=== PATIENT | female | born 1935 | race Caucasian/White ===

== ENCOUNTER 2019-10-27 09:48 | Outpatient (CLI) | payer MEDICARE, SELFPAY ==
--- NOTE | 2019-10-27 10:03 | XRR_ITS ---
PROCEDURE INFORMATION: Exam: XR Left Knee Exam date and time: 10/27/2019 10:29 AM Age: 84 years old Clinical indication: Pain; Knee; Left; Additional info: L knee pain TECHNIQUE: Imaging protocol: XR Left knee. Views: 3 views. COMPARISON: No relevant prior studies available. FINDINGS: Bones/joints: There is joint space narrowing and osteophyte formation in the medial compartment. There is chondrocalcinosis.There is no evidence for acute fracture or malalignment. Soft tissues: Normal. XR/XR knee LT 3V* [id number] IMPRESSION: There is left knee osteoarthritis and chondrocalcinosis.
== END 2019-10-27 09:49 | disposition home or self-care (01) ==
LOC: RAD 09:55
PROVIDERS: Family Provider Family Medicine; PCP Family Medicine; Visit Provider Family Medicine
DX: M11.262 Other chondrocalcinosis, left knee (principal); M17.12 Unilateral primary osteoarthritis, left knee; M25.562 Pain in left knee
CPT/HCPCS: 73562

== ENCOUNTER 2020-04-14 07:03 | Emergency (ER) | payer MEDICARE, SELFPAY ==
[2020-04-14 07:14] VITALS: BMI 26.5
[2020-04-14 07:16] VITALS: BP 136/76; PULSE 50; RESP 18; TEMP 36.8; O2SAT 98
--- NOTE | 2020-04-14 07:29 | ED_ITS ---
HPI - Extremity Problem General: Chief complaint: Extremity Problem,Nontraumatic Stated complaint: LEFT KNEE PAIN Time Seen by Provider: 04/14/20 07:08 History of Present Illness: HPI Narrative: Patient comes in with chronic history of left knee pain that is progressively gotten worse. She has had a couple steroid shots in that left knee. Last one was a month ago by Dr. Campbell. Patient says knee was hurting some yesterday but when she woke up this morning she can hardly movement and it was a lot worse today and she did get up and move around some but the pain has not gone away. MD Complaint: joint pain Onset (ago): month(s) Pain Consistency: constant Location: left and knee Severity scale (1-10): 7 Quality: aching Radiation: none Relieving factors: rest Exacerbating factors: weight bearing Associated symptoms: Reports no associated symptoms; Deny chest pain, fever(s) or rash Review of Systems Const: Denies: fever(s), chills or body aches Eyes: Denies: change in vision or blurry vision ENMT: Denies: throat pain or nasal congestion Card: Denies: chest pain or dyspnea on exertion Resp: Denies: dyspnea, productive cough or non-productive cough GI: Denies: abdominal pain, nausea or vomiting Musc: Reports: joint pain, joint warmth, joint stiffness and limited range of motion; Denies: extremity pain Skin/Breast: Denies: rash Neuro: Denies: headache(s) Psych: Denies: anxiety or depression Fermin/Lymph: Denies: easy bruising Physical Exam Const: COMMON NORMALS: no acute distress, average body habitus and patient oriented x3 HENMT: COMMON NORMALS: normocephalic HEAD & SCALP: normal to inspection and normocephalic FACE & SINUS: normal facial exam Eye: COMMON NORMALS: conjunctivae normal GENERAL EYE: appearance normal, both eyes and all related structures CONJUNCTIVA: Yes conjunctivae normal Neck/C-Spine: COMMON NORMALS: no JVD Chest: COMMONS NORMALS: normal inspection of the chest Resp: COMMON NORMALS: normal respiratory effort and clear to auscultation bilaterally AUSCULTATION: clear to auscultation bilaterally Cardio: COMMON NORMALS: no JVD, regular rate and regular rhythm RATE: regular rate RHYTHM: regular rhythm GI: COMMON NORMALS: Normal to inspection, nondistended, normoactive bowel sounds present Extremity: LEFT LOWER EXTREMITY: Yes knee joint (Left knee is very warm to the touch above the kneecap. Definite chronic osteoarthritic changes to the joint as compared to the right. Patient has limited range of motion due to pain. No erythema noted.) OTHER: Distal neurovascular status intact. Neuro: COMMON NORMALS: patient oriented x3 Course Vital Signs: Vital signs: Vital Signs Temperature 97.8 F 04/14/20 10:16 Pulse Rate 63 04/14/20 10:16 Respiratory Rate 16 04/14/20 10:16 Blood Pressure 124/66 04/14/20 10:16 Pulse Oximetry 95 04/14/20 10:16 MDM - Extremity (Nontraumatic) MDM Narrative: Medical decision making narrative: Patient is [id number] in that left knee which she is aware of. Daughter command and asked if we go ahead and add hydrocodone for take at night. Lab Data: Labs: Lab Results 04/14/20 04/14/20 04/14/20 Range/Units 07:40 07:40 07:40 WBC 4.8 (4.0-10.0) 10^3/ uL RBC 4.60 (4.1-5.3) 10^6/u L Hgb 13.9 (11.5-15.3) g/dL Hct 42.6 (37.0-47.0) % MCV 92.6 (81-99) fL MCH 30.2 (28.0-34.0) pg MCHC 32.6 (30.0-36.0) g/dL RDW 12.9 (12.1-15.1) % Plt Count 170 (130-400) 10^3/c mm MPV 9.1 (7.4-10.4) fL Neut % (Auto) 41.3 % Lymph % (Auto) 44.7 % [place] % (Auto) 9.5 % Eos % (Auto) 3.3 % Baso % (Auto) 1.0 % Neut # (Auto) 1.99 (1.8-7.7) 10^3/u L Lymph # (Auto) 2.2 (0.8-4.8) 10^3/u L [place] # (Auto) 0.5 (0.2-0.9) 10^3/u L Eos # (Auto) 0.2 (0.0-0.8) 10^3/u L Baso # (Auto) 0.1 (0.0-0.1) 10^3/u L Nucleated RBC % (a uto) 0 % Nucleated RBCs # 0.0 /100WBC ESR 8 (0-15) mm/hr Uric Acid 5.3 (2.4-5.7) mg/dL C-Reactive Protein 3.8 (0.0-4.9) mg/L Discharge Plan Discharge Patient Disposition: Home, Self-Care Clinical Impression: (Ruled Out): Knee osteomyelitis, left Condition: Stable Prescriptions: New Celebrex 200 mg capsule 200 mg PO BID PRN (Reason: pain) Qty: 20 RF: 0 hydrocodone-acetaminophen 5-325 mg tablet 1 tab PO Q12H PRN (Reason: pain) Qty: 14 RF: 0 No Action losartan 50 mg tablet 50 mg PO DAILY RF: 0 clopidogrel 75 mg tablet 75 mg PO DAILY RF: 0 Aspir-81 81 mg Tablet,Delayed Release (Dr/Ec) 81 mg PO DAILY RF: 0 levothyroxine 75 mcg tablet 75 mcg PO DAILY RF: 0 simvastatin 20 mg tablet 20 mg PO DAILY RF: 0 oxybutynin chloride 5 mg tablet 5 mg PO TID RF: 0 metoprolol tartrate 25 mg tablet 12.5 mg PO BID RF: 0 Hair Skin And Nails Gummies 1 tab PO BID RF: 0 Discharge Orders: Discharge Order (Routine); Ordered 04/14/20 Ordered By: Lex Gonzalez Referrals: Aung Campbell MD [Primary Care Provider] - Discharge Diet: Usual diet Discharge Activity: Increase activity as tolerated Patient Instructions: Osteoarthritis (ED) Activity Restrictions/Additional Instructions: Follow-up with medical provider as directed. Take medications as prescribed. Return to the ER or your medical provider if condition worsens. Please read and understand discharge instructions. If any questions ask please. Can take up to 2 tramadol at a time for knee pain follow-up Dr. Campbell soon as possible Discharge Date/Time: 04/14/20 10:21 Coding Level of Care Code ED Tilting Saw Operator for Chg Fwd Exam Comprehensive
[2020-04-14] MEDS: predniSONE 20 mg Tablet 60 MG PO (07:40)
[2020-04-14] MEDS: HYDROcodone-acetaminophen 5-325 mg Tablet 1 TAB PO (07:41)
[2020-04-14] MEDS: ketorolac 60 mg/2 mL INJ IM (07:41)
[2020-04-14 08:03] LABS: Basophils # 0.1 10^3/uL (0.0-0.1); Eosinophils # 0.2 10^3/uL (0.0-0.8); Eosinophils % 3.3 %; Hematocrit 42.6 % (37.0-47.0); Hemoglobin 13.9 g/dL (11.5-15.3); Lymphocytes # 2.2 10^3/uL (0.8-4.8); Lymphocytes % 44.7 %; Mean Corpuscular HGB Conc 32.6 g/dL (30.0-36.0); Mean Corpuscular Hemoglobin 30.2 pg (28.0-34.0); Mean Corpuscular Volume 92.6 fL (81-99); Mean Platelet Volume 9.1 fL (7.4-10.4); Monocytes # 0.5 10^3/uL (0.2-0.9); Monocytes % 9.5 %; Neutrophils # 1.99 10^3/uL (1.8-7.7); Neutrophils % 41.3 %; Nucleated Red Blood Cells % 0 %; Platelet Count 170 10^3/cmm (130-400); Red Cell Distribution Width 12.9 % (12.1-15.1); White Blood Count 4.8 10^3/uL (4.0-10.0)
[2020-04-14 08:43] LABS: C Reactive Protein 3.8 mg/L (0.0-4.9); Uric Acid 5.3 mg/dL (2.4-5.7)
--- NOTE | 2020-04-14 08:44 | XRR_ITS ---
PROCEDURE INFORMATION: Exam: XR Left Knee Exam date and time: 04/14/2020 9:00 AM Age: 84 years old Clinical indication: Patient HX: No injury. C/O pain left knee. HX of steroid injections to knee; Additional info: Severe pain TECHNIQUE: Imaging protocol: XR Left knee. Views: Frontal, lateral, and oblique views. COMPARISON: CR XR knee LT 3V* [id number] 10/27/2019 10:25 AM FINDINGS: Bones/joints: Severe medial compartment predominate narrowing with moderate articular sclerosis and medial articular marginal lipping. Slight lateral subluxation of the tibia. Mild varus alignment. Medial and lateral meniscal chondrocalcinosis. 3.4 mm of medial extrusion of the medial meniscus. Large knee joint effusion. A small superior patellar articular marginal osteophyte is present, poorly visualized on the prior study. Soft tissues: Normal. Vasculature: Vascular calcifications are present. XR/XR knee LT 3V* [id number] IMPRESSION: 1. Medial compartment predominant primary osteoarthritis. 2. Medial and lateral meniscal chondrocalcinosis. 3. Large knee joint effusion.
[2020-04-14 08:52] VITALS: BP 128/71; PULSE 55; RESP 16; O2SAT 97
[2020-04-14 08:58] LABS: Erythrocyte Sedimentation Rate 8 mm/hr (0-15)
[2020-04-14 10:16] VITALS: BP 124/66; PULSE 63; RESP 16; TEMP 36.6; O2SAT 95
== END 2020-04-14 10:21 | disposition home or self-care (01) ==
PROVIDERS: Emergency Provider Nurse Practitioner Family; PCP Family Medicine
DX: M17.12 Unilateral primary osteoarthritis, left knee (principal)
CPT/HCPCS: 12345; 73562; 84550; 85025; 85651; 86140; 96372; 96375; 99281; 99283; J1885; J7512

== ENCOUNTER 2020-05-11 07:43 | Outpatient (CLI) | payer MEDICARE, SELFPAY ==
--- NOTE | 2020-05-11 07:56 | ECG_ITS ---
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 Interpretive Statements NAME OF STUDY: LEXISCAN SESTAMIBI STRESS TEST INDICATION: ASHD PROCEDURE: At the baseline, the blood pressure was 141/88 mmHg with a heart rate of 60 bpm. The electrocardiogram showed sinus bradycardia with first-degree AV block. Normal axis with nonspecific ST depression. The Lexiscan was infused over a period of 20 seconds. A total of 0.4 milligrams of Lexiscan was infused. The stress phase was continued for a total of 5 minutes. Heart rate at the end of the stress phase was 70 bpm with a blood pressure of 142/69 mmHg. The EKG at the peak infusion revealed sinus rhythm with no significant ST-T wave changes. Study was terminated due to protocol completion. Sestamibi was injected 20 seconds after the Lexiscan infusion. Blood pressure at the end of the recovery phase was 131/66 mmHg with a heart rate of 73 beats per minute. CONCLUSION: 1. No significant EKG changes with the LexiScan infusion. 2. No LexiScan induced chest pain or cardiac arrhythmia. 3. Normal blood pressure and heart rate response. 4. Sestamibi/sestamibi perfusion scan pending; see separate report. Electronically Signed On 05-12-2020 17:35:36 CDT by Luz Elena Laughlin M.D. [id number]
--- NOTE | 2020-05-11 07:57 | NMCV_ITS ---
NM liv perf SPECT r/s* [id number] Kandis Landin Age: 84 Gender: F : 1935 Exam Date: 05/11/2020 07:57 Ordering Phys: Luz Elena Laughlin MD ([email or web address]) Technologist: GORDON Saunders Exam Location: [facility] Indications: ATHEROSCLEROTIC HEART DISEASE OF [place] CORONARY ARTERY STRESS TEST Please [facility] for [facility] findings IMAGE PROTOCOL Rest/Stress 1 Lexiscan Day Radiopharmaceutical Dose (mCi) Administration Site Administered by Rest: Tc-99m 10.7 IV GORDON Hsu Sestamibi Stress:Tc-99m 32.8 IV GORDON Saunders Sestamijane Rest: 11-May-2020 60 Discovery 630 Stress: 11-May-2020 30 Discovery 630 0.4mg Lexiscan. Images obtained in supine and prone position. SPECT RESULTS Technical Quality: Excellent Raw Data Analysis: Normal Image Corrections: No attenuation or motion correction applied Summed Stress Score: 3 Summed Rest Score: 2 Summed Difference Score: 1 PERFUSION FINDINGS Small sized perfusion abnormality of mild severity of apical septal and apical laterla tompkins on rest images with improved tracer uptake of prone stress images. This is suggestive of attenuation artifact. FUNCTIONAL RESULTS (calculated via Gated SPECT) Stress Image LV EF (%): 91 Stress EDV (mL):54 TID: 0.79 Stress ESV (mL):5 FUNCTIONAL FINDINGS: The left ventricle is normal in size. Transient Ischemia Dilatation of 0.79. There is hyperdynamic left ventricular systolic function. The left ventricular ejection fraction is hyperdynamic with a value of 91%. There is hyperdynamic left ventricular wall thickening. IMPRESSIONS 1. Small sized perfusion abnormality of mild severity of apical septal and apical laterla tompkins on rest images with improved tracer uptake of prone stress images. This is suggestive of attenuation artifact. 2. Overall left ventricular systolic function is hyperdynamic without regional wall motion abnormalities. 3. The left ventricular ejection fraction is hyperdynamic with a value of 91%. 4. No coronary ischemic based on this study. Luz Elena Laughlin MD (Electronically Signed) Final Date: 12 May 2020 21:57 S
[2020-05-11 08:12] VITALS: BMI 27.1
[2020-05-11] MEDS: regadenoson 0.4 Mg/5 ml Syringe IVP (09:49)
[2020-05-11 10:07] VITALS: BP 130/66; PULSE 68
== END 2020-05-11 07:44 | disposition home or self-care (01) ==
LOC: CDL 07:43
PROVIDERS: PCP Family Medicine; Visit Provider Internal Medicine Cardiovascular Disease
DX: I25.10 Atherosclerotic heart disease of native coronary artery without angina pectoris (principal)
CPT/HCPCS: 78452; 93017; A9500; J2785

== ENCOUNTER → 2020-05-26 14:56 | Outpatient (BNVA) | payer MEDICARE, SELFPAY | PROVIDERS: PCP Family Medicine; Visit Provider Orthopaedic Surgery | DX: M25.562 Pain in left knee (principal) | CPT/HCPCS: 73560; 73565 ==

== ENCOUNTER → 2020-06-18 09:04 | Outpatient (BNVA) | payer MEDICARE, SELFPAY | PROVIDERS: PCP Family Medicine; Visit Provider Internal Medicine | DX: Z11.59 Encounter for screening for other viral diseases (principal) | CPT/HCPCS: 87635 ==

== ENCOUNTER 2020-06-21 08:59 | Observation (INO) | payer MEDICARE, SELFPAY ==
[2020-06-17 10:31] VITALS: BMI 26.5
--- NOTE | 2020-06-17 10:55 | P.ANESASSM_ITS ---
Pre-Anesthetic Assessment Pre-Anesthetic Assessment: Height/Weight: Height 1.6 m Weight 68.039 kg Preop Diagnosis: Osteoarthritis left knee Proposed Procedure: Operation Date: 06/21/20 07:00 Proposed Procedures p Total Knee Arthroplasty 37506 M17.12(Left) - Dagoberto Padron MD Familial anesthetic complications: None Social: Social History: No alcohol and No tobacco Exam: Pre-Anes Outpt Exam: alert, oriented x 3, clear to auscultation bilaterally and regular rate & rhythm Airway: Cervical ROM: WNL MP: 4 Dentition: False and Partials CV/HEM: CV/HEM: HTN and GA (2010 with stents placed ) GI: GI: GERD Metabolic: Metabolic: Thyroid Neuropsych: Neuropsych: 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) Anesthetic Plan: ASA status: 2 Anesthesia: General and Regional (specify below) Other: Took plavix morning of 06/17 [facility] Anesthesia PFSH: Medical History (Updated 05/26/20 @ 15:27 by aDgoberto Padron MD) Coronary artery disease Hypothyroidism Osteoarthritis Surgical History H/O rotator cuff surgery History of bladder suspension procedure History of heart artery stent History of hysterectomy History of tonsillectomy Family History Other CAD (coronary artery disease) Social History Smoking and tobacco status: former smoker Alcohol intake: never Data Anesthesia Cardiac Studies: No Data to Display
[2020-06-17 11:33] LABS: Basophils # 0.1 10^3/uL (0.0-0.1); Basophils % 1.5 %; Eosinophils # 0.1 10^3/uL (0.0-0.8); Eosinophils % 2.5 %; Hematocrit 39.9 % (37.0-47.0); Hemoglobin 12.9 g/dL (11.5-15.3); Lymphocytes # 2.7 10^3/uL (0.8-4.8); Lymphocytes % 68.2 %; Mean Corpuscular HGB Conc 32.3 g/dL (30.0-36.0); Mean Corpuscular Hemoglobin 29.9 pg (28.0-34.0); Mean Corpuscular Volume 92.4 fL (81-99); Mean Platelet Volume 9.5 fL (7.4-10.4); Monocytes # 0.5 10^3/uL (0.2-0.9); Monocytes % 13.1 %; Neutrophils % 14.7 %; Nucleated Red Blood Cells % 0 %; Platelet Count 166 10^3/cmm (130-400); Red Blood Count 4.32 10^6/uL (4.1-5.3); Red Cell Distribution Width 12.5 % (12.1-15.1)
[2020-06-17 12:08] LABS: Neutrophils # 0.58 10^3/uL (1.8-7.7)
[2020-06-21] VITALS (20 sets, daily range): BP systolic 93–156; BP diastolic 47–80; PULSE 54–74; RESP 15–20; TEMP 35.5–36.6; O2SAT 93–98
[2020-06-21] MEDS: sodium chloride 0.9% 1,000 ML 30 ML IV (06:00)
[2020-06-21] MEDS: metoprolol tartrate 25 mg Tablet 12.5 MG PO ×3 (06:30→17:40)
--- NOTE | 2020-06-21 06:30 | ANES.PROC ---
Anesthesia Procedures Procedure/Date: 06/21/20 Nerve Block ^: Nerve Block 1: Main Anesthesia: general anesthesia Time Out Performed: Yes Consent: requested by attending/covering physician, from patient, from other, risks and benefits reviewed, patient agrees to proceed and emergency procedure Nerve block location: adductor canal (L) Anesthesia monitors applied: pulse oximetry, EKG, BP cuff and oxygen Nerve block position: supine Anesthetic Used: ropivicaine 0.5% and with decadron (4 mg) Amount of anesthesia used (mL): 30 Ultrasound used to: recognize landmarks Nerve Stimulator Used?: No Interscalene/Femoral BLK: 4 stimuplex 21 g needle used for position and inplane approach, visualize local anesthetic spread and no vascular puncture identified Injection: neg aspiration of heme Patient Tolerated Procedure: well and no complications Complications: none
--- NOTE | 2020-06-21 06:36 | W.PM.OPSUD ---
Surgery/Procedure H&P Update DATE OF PROCEDURE: June 21, 2020 DATE H&P PERFORMED: 05/26/20 PREOP DIAGNOSIS: Osteoarthritis left knee PLANNED PROCEDURE: Operation Date: 06/21/20 07:00 Proposed Procedures p Total Knee Arthroplasty 62109 M17.12(Left) - Dagoberto Padron MD
[2020-06-21] MEDS: midazolam 1 mg/mL INJ 2 mL 2 MG IVP (06:37)
[2020-06-21] MEDS: EPINEPHrine 1 mg/mL INJ XX (07:51)
[2020-06-21] MEDS: ketorolac 30 mg/mL INJ XX (07:52)
[2020-06-21] MEDS: tranexamic acid 1,000 mg/10mL SDV 1000 MG IRRIGATION (08:11)
--- NOTE | 2020-06-21 08:40 | PM.OP ---
Operative Report Date of procedure: June 21, 2020 Pre-op Diagnosis: Osteoarthritis left knee Post-op diagnosis: same Post-op Findings: Same Procedure Done: Left total knee arthroplasty Pathology: none sent Surgeon: Dagoberto Padron Anesthesia: General and Nerve Block (Adductor canal block) Estimated blood loss (mL): 200 Findings: Patient had severe eburnation of wear over the medial femoral condyle, medial tibial plateau, patella and trochlea Condition: stable Disposition: PACU Procedure: The patient was taken to the operating room. Patient was given 1 g of tranexamic acid . The above anesthesia provided by the anesthesia service. A timeout was performed. The patient was prepped and draped in the usual fashion with the lower extremity exposed. A anterior incision was made, midline, from a point proximal to the patella to the distal tibial tubercle. The knee was entered through a medial parapatellar approach. The patella could be displaced laterally and the knee flexed. The patellar fat pad was resected to provide better visibility. Retractors were placed medially and laterally adjacent to the tibial plateau. The femoral canal was drilled in line with the longitudinal axis of the femur. Intramedullary femoral guide for used to make a distal femoral cut in 5 degrees of valgus, resecting 10 mm from the more prominent condyle to address preoperative flexion contracture of approximately 50 degrees. Next the extra medullary tibial guide was placed in alignment with the longitudinal axis of the tibia. The cutting guides were set to remove just over 9 mm from the high tibial plateau. The proximal tibia was then cut. The femoral measuring guide was then placed over the distal femur. Rotation was verified checking the relationship of the guide to the condyle and the trochlear groove. The femur was measured and cut for the desired femoral component. The desired tibial baseplate was then chosen. A trial reduction with the femur tibial baseplate and polyethylene was done, assuring that the knee was stable throughout full motion. Ligament balancing nothing more than a release of the deep medial collateral ligament.The tibia was prepared for the tibial baseplate. Patellar thickness was then measured. The patella was cut removing articular cartilage and prepared for appropriate size patellar button. All surfaces were cleaned with pulsatile lavage. The femur tibia and patella were then press-fit into place, as despite the patient's age bone quality was excellent. The posterior capsule and collateral ligaments were then injected with a solution of 100 mL of 0.2% ropivacaine, 1 mL of a 1:1000 epinephrine solution, and 30 mg of Toradol. Final polyethylene component was then snapped into place into the tibia. 2 grams of tranexamic acid were applied to the wound. The tourniquet was deflated. The tranxanemic acid was left contact with the knee for 5 minutes before the knee was irrigated with saline. The extensor retinaculum was closed with 1 Ethibond. The subcutaneous tissues were closed with 2-0 Vicryl and the skin was closed with skin harriet. A compressive dressing was applied. The patient was taken to recovery room in stable condition. [employer] total knee arthroplasty components were used includin) Size 5 triathalon cruciate retaining femoral component 2) Size 4 Tritanium tibial component 3) 32 mm /10 mm thickness Tritanium asymetric patella 4) Size 4/9 mm thickness CR tibial bearing insert
--- NOTE | 2020-06-21 08:56 | XRR_ITS ---
PROCEDURE INFORMATION: Exam: XR Left Knee Exam date and time: 06/21/2020 9:08 AM Age: 84 years old Clinical indication: Device placement; Joint replacement hardware; Prior surgery; Surgery date: Post-operative (0-2 days); Additional info: Total knee arthroplasty TECHNIQUE: Imaging protocol: XR Left knee. Views: 3 views. COMPARISON: CR (LOW EXM, ) 05/26/2020 3:04 PM FINDINGS: Bones/joints: Patient is status post knee arthroplasty with near anatomical alignment of the prosthesis. No paralleling lucencies about the femoral or tibial component to suggest loosening. No acute fracture or dislocation. Soft tissues: Surgical clips in the soft tissues. Other findings: Spacer. XR/XR knee LT 3V* [id number] IMPRESSION: 1. Status post knee arthroplasty. 2. No paralleling lucencies about the femoral or tibial component to suggest loosening. 3. No acute fracture or dislocation.
--- NOTE | 2020-06-21 09:08 | PM.PACU ---
PACU note Post-Anesthesia Exam: awake and vital signs stable Disposition: admitted
[2020-06-21] MEDS: oxybutynin 5 mg Tablet PO ×3 (10:11→21:08)
[2020-06-21] MEDS: aspirin 81 mg EC Tablet PO (10:11)
[2020-06-21] MEDS: losartan 50 mg Tablet PO (10:11)
[2020-06-21] MEDS: CELEcoxib 200 mg Capsule PO ×2 (10:11→21:03)
[2020-06-21] MEDS: clopidogrel 75 mg Tablet PO (10:11)
[2020-06-21] MEDS: atorvastatin 40 mg Tablet 20 MG PO (10:11)
[2020-06-21] MEDS: chlorhexidine gluconate 0.12% Btl 473 mL 30 ML MUCOUS MEM ×4 (10:11→21:06)
[2020-06-21] MEDS: sennosides-docusate Tablet 2 TAB PO ×2 (10:11→17:40)
[2020-06-21] MEDS: mupirocin oint 22 gm 1 APPLIC NASAL ×2 (10:12→17:41)
[2020-06-21] MEDS: sodium chloride 0.9% 1,000 ML 70 ML IV (10:12)
[2020-06-22] VITALS: BP 99/50; PULSE 59; RESP 20; TEMP 36.6; O2SAT 96
[2020-06-22 02:52] LABS: Hematocrit 29.6 % (37.0-47.0); Hemoglobin 9.6 g/dL (11.5-15.3); Lymphocytes # 1.4 10^3/uL (0.8-4.8); Lymphocytes % 34.4 %; Mean Corpuscular HGB Conc 32.4 g/dL (30.0-36.0); Mean Corpuscular Hemoglobin 29.7 pg (28.0-34.0); Mean Corpuscular Volume 91.6 fL (81-99); Mean Platelet Volume 9.7 fL (7.4-10.4); Monocytes # 0.8 10^3/uL (0.2-0.9); Monocytes % 18.3 %; Neutrophils # 1.93 10^3/uL (1.8-7.7); Neutrophils % 47.1 %; Nucleated Red Blood Cells % 0 %; Platelet Count 163 10^3/cmm (130-400); Red Blood Count 3.23 10^6/uL (4.1-5.3); Red Cell Distribution Width 12.5 % (12.1-15.1); White Blood Count 4.1 10^3/uL (4.0-10.0)
[2020-06-22 03:12] LABS: Anion Gap 12.8 (5-19); Blood Urea Nitrogen 19 mg/dL (8-23); Calcium 8.3 mg/dL (8.5-10.5); Carbon Dioxide 21 mmol/L (22-29); Chloride 104 mmol/L (98-107); Glucose 161 mg/dL (65-115); Osmolality Calculated 282 mOsm/kg (285-295); Potassium 4.8 mmol/L (3.5-5.1); Sodium 133 mmol/L (136-145)
[2020-06-22 04:36] VITALS: BP 114/63; PULSE 64; RESP 20; TEMP 36.8; O2SAT 97
[2020-06-22] MEDS: sodium chloride 0.9% 1,000 ML 70 ML IV (06:23)
[2020-06-22 08:19] VITALS: BP 118/63
[2020-06-22] MEDS: losartan 50 mg Tablet PO (08:19)
[2020-06-22] MEDS: oxybutynin 5 mg Tablet PO ×2 (08:19→16:18)
[2020-06-22] MEDS: aspirin 81 mg EC Tablet PO (08:21)
[2020-06-22] MEDS: sennosides-docusate Tablet 2 TAB PO ×2 (08:21→17:14)
[2020-06-22] MEDS: metoprolol tartrate 25 mg Tablet 12.5 MG PO ×2 (08:21→17:15)
[2020-06-22] MEDS: levothyroxine 150 mcg Tablet 75 MCG PO (08:22)
[2020-06-22] MEDS: clopidogrel 75 mg Tablet PO (08:22)
[2020-06-22] MEDS: chlorhexidine gluconate 0.12% Btl 473 mL 30 ML MUCOUS MEM ×3 (08:23→17:15)
[2020-06-22] MEDS: mupirocin oint 22 gm 1 APPLIC NASAL ×2 (08:23→17:15)
[2020-06-22] MEDS: atorvastatin 40 mg Tablet 20 MG PO (08:23)
[2020-06-22] MEDS: CELEcoxib 200 mg Capsule PO (09:59)
--- NOTE | 2020-06-22 10:05 | ANE.PACU2 ---
Inpatient post-anesthesia follow up: Airway intact: Yes Vital signs: Temperature 98.2 F Pulse Rate 64 Respiratory Rate 20 Blood Pressure 118/63 Pulse Oximetry 97 Oxygen Delivery Me thod Room Air Oxygen Flow Rate Fraction of Inspir ed Oxygen Hydration adequate: Yes Nausea and vomiting: No Pain level: 3 Mental status: Baseline
[2020-06-22] MEDS: HYDROcodone-acetaminophen 7.5-325 mg Tablet 1 TAB PO ×2 (12:55→17:37)
[2020-06-22 13:02] VITALS: BP 117/65; PULSE 66; RESP 20; TEMP 36.8; O2SAT 97
[2020-06-22 15:23] VITALS: BP 126/71; PULSE 70; RESP 18; TEMP 36.8; O2SAT 100
--- NOTE | 2020-06-22 16:46 | P.DS_ITS ---
Discharge Providers Date of Admission: 06/21/20 08:59 Date of Discharge: June 22, 2020 Attending Provider at Admission: Dagoberto Padron MD Attending Provider at Discharge: Dagoberto Padron MD Primary Care Provider: Aung Campbell MD Diagnoses at Discharge Discharge Diagnosis (1) Status post left knee replacement: Status: Acute (2) Osteoarthritis of left knee: Status: Acute Reason for Visit Reason for Visit: Primary osteoarthritis left knee Hospital Course Hospital Course: The patient tolerated surgery well. They remained hemodynamically stable. They was begun on aspirin and sequential compression devices for DVT prophylaxis. The patient was mobilized with therapy beginning the day of surgery and by the first postoperative day independent with the walker. As the pain was adequately controlled and they were fully mobile they were discharged home. Physical Exam Narrative: EXAM NARRATIVE: On the day of discharge the knee incision was clean. Slight ecchymosis identified over the lateral knee. No blistering. They had no drainage. There is minimal swelling in the thigh and knee and the calf. No distal neurovascular deficits were noted Urinary Catheter Management^: Matthew: Cath Placed During This Visit: yes Urinary Catheter Date of Insertion: 06/21/20 Urinary Catheter Time of Insertion: 08:25 Discharge Data Data Completed and Pending: Completed Studies During Hospitalization Category Date Time Status XR knee LT 3V* [id number] Routine Exams 06/21/20 08:56 Completed Labs from last 24 hours 06/22/20 06/22/20 02:20 02:20 WBC 4.1 RBC 3.23 L Hgb 9.6 L Hct 29.6 L MCV 91.6 MCH 29.7 MCHC 32.4 RDW 12.5 Plt Count 163 MPV 9.7 Neut % (Auto) 47.1 Lymph % (Auto) 34.4 [place] % (Auto) 18.3 Eos % (Auto) 0.0 Baso % (Auto) 0.0 Neut # (Auto) 1.93 Lymph # (Auto) 1.4 [place] # (Auto) 0.8 Eos # (Auto) 0.0 Baso # (Auto) 0.0 Nucleated RBC % (a uto) 0 Nucleated RBCs # 0.0 Sodium 133 L Potassium 4.8 Chloride 104 Carbon Dioxide 21 L Anion Gap 12.8 BUN 19 Creatinine 0.9 GFR Calculation Not Reportable Glucose 161 H Calculated Osmolal ity 282 L Calcium 8.3 L Vitals: Last Vital Signs Temp 98.3 F 06/22/20 15:23 Pulse 70 06/22/20 15:23 Resp 18 06/22/20 15:23 BP 126/71 06/22/20 15:23 Pulse Ox 100 06/22/20 15:23 Discharge Plan Discharge Patient Disposition: Home Condition: Stable Prescriptions: New hydrocodone-acetaminophen 7.5-325 mg Tablet 1 tab PO Q4H PRN (Reason: Moderate Pain) 7 Days Qty: 30 RF: 0 Continued nitroglycerin 0.4 mg tablet, sublingual 0.4 mg SUBLINGUAL Q5M PRN (Reason: chest pain) Qty: 25 RF: 0 losartan 50 mg tablet 50 mg PO DAILY RF: 0 clopidogrel 75 mg tablet 75 mg PO DAILY RF: 0 aspirin [Aspir-81] 81 mg Tablet,Delayed Release (Dr/Ec) 81 mg PO DAILY RF: 0 levothyroxine 75 mcg tablet 75 mcg PO DAILY RF: 0 simvastatin 20 mg tablet 20 mg PO DAILY RF: 0 oxybutynin chloride 5 mg tablet 5 mg PO TID RF: 0 metoprolol tartrate 25 mg tablet 12.5 mg PO BID RF: 0 Hair Skin And Nails Gummies 1 tab PO BID RF: 0 hydrocodone-acetaminophen 5-325 mg tablet 1 tab PO Q12H PRN (Reason: pain) Qty: 14 RF: 0 Discharge Orders: Discharge Order (Routine); Ordered 06/22/20 Ordered By: Dagoberto Padron Other Ambulatory Orders: DME: Oliver (Order) Location: None Selected Ordered By: Dagoberto Padron Referrals: [facility] ([facility]) [Outside] Dagoberto Padron MD [Physician] - 07/06/20 11:45 am Discharge Diet: Advance as tolerated Discharge Activity: Limit activity as instructed Activity Restrictions/Additional Instructions: May shower once incisions completely free of drainage. Discontinue knee dressing in 24-48 hours. Replaced dressings as needed. Take Celebrex twice a day for the next 15 days for pain , discontinue other anti-inflammatories take [] for breakthrough pain. Exercises per physical therapy. 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
[2020-06-22 16:48] VITALS: BP 126/71; PULSE 70; RESP 18; TEMP 36.8; O2SAT 100
[2020-06-22] MEDS: ondansetron 2 mg/ML SDV 2 mL 4 MG IVP (17:11)
--- NOTE | 2020-06-22 18:09 | PC.NURSE ---
URINATION PATIENT HAS NOT VOIDED SINCE JHA CATHETER REMOVED THIS AM. THIS NURSE BLADDER SCANNED PATIENT. BLADDER SCAN SHOWED 305ML IN BLADDER. DR. EUGENE NOTIFIED. DR. EUGENE PROCEEDED TO DISCHARGE PATIENT WITHOUT VOIDING FIRST. HE ALONG WITH THIS NURSE DISCUSSED THIS WITH THE PATIENT. PATIENT STATED SHE UNDERSTOOD AND WAS COMFORTABLE BEING DISCHARGED HOME.
== END 2020-06-22 18:12 | disposition home or self-care (01) ==
LOC: MEDSURG 08:59
PROVIDERS: Anesthesiology; Admitting Provider Orthopaedic Surgery; PCP Family Medicine; Visit Provider Orthopaedic Surgery
PROC: (CPT 27447; principal; 2020-06-21 07:00)
DX: M17.12 Unilateral primary osteoarthritis, left knee (principal); I25.10 Atherosclerotic heart disease of native coronary artery without angina pectoris; E03.9 Hypothyroidism, unspecified; Z79.82 Long term (current) use of aspirin; Z87.891 Personal history of nicotine dependence
CPT/HCPCS: 27447; 12345; 36415; 51702; 73562; 80048; 85025; 96361; 96365; 96374; 96375; 97110; 97116; 97161; 97165; C1776; G0378; J0171; J0690; J1100; J1580; J1885; J2250; J2405; J2704; J2710; J2795; J3010; J3490; J7030

== ENCOUNTER 2020-06-30 16:37 | Outpatient (CLI) | payer MEDICARE, SELFPAY ==
--- NOTE | 2020-06-30 17:16 | USCV_ITS ---
Kandis Landin Age: 84 Gender: F : 1935 Exam Date: 06/30/2020 17:10 Ordering Phys: Dagoberto Padron MD Technologist: Gustabo Young Exam Location: [facility] [place] Indication: POST LT KNEE REPLACEMENT HISTORY: LT LEG status post knee replacement SWELLING PROCEDURES: Venous duplex imaging was performed in only the left lower extremity. The following venous structures were evaluated: common femoral vein, profunda vein, proximal portion of the greater saphenous vein, superficial femoral vein, and the popliteal vein. FINDINGS: Normal 2-D Doppler and augmentation and compressibility throughout the lower extremity venous structures. Additional imaging through the proximal calf veins also reveals no thrombus. Limited evaluation of the greater saphenous vein is patent with no thrombus. CONCLUSIONS No DVT left lower extremity. Dr. Debbi Mathias DO (Electronically Signed) Final Date: 01 July 2020 08:07 S
== END 2020-06-30 16:38 | disposition home or self-care (01) ==
LOC: RAD 16:44
PROVIDERS: PCP Family Medicine; Visit Provider Orthopaedic Surgery
DX: Z96.652 Presence of left artificial knee joint (principal)
CPT/HCPCS: 93971

== ENCOUNTER 2020-07-03 05:36 | Emergency (ER) | payer MEDICARE, SELFPAY ==
[2020-07-03 05:41] VITALS: BP 142/80; PULSE 66; RESP 16; TEMP 36.6; O2SAT 96; BMI 26.5
--- NOTE | 2020-07-03 06:16 | XRR_ITS ---
PROCEDURE INFORMATION: Exam: XR Left Knee Exam date and time: 07/03/2020 6:18 AM Age: 84 years old Clinical indication: Left; Prior surgery; Surgery date: <1 month; Patient HX: Continued pain and swelling S/P total knee arthroplasty two weeks ago. TECHNIQUE: Imaging protocol: XR Left knee. Views: 3 views. COMPARISON: CR XR knee LT 3V* [id number] 06/21/2020 8:55 AM FINDINGS: Prior knee replacement surgery. The femoral, tibial, and patellar components appear in satisfactory position. There is no acute fracture or dislocation. No other significant acute bone or joint abnormality. XR/XR knee LT 3V* [id number] IMPRESSION: 1. No acute fracture or dislocation. 2. Other findings discussed above.
--- NOTE | 2020-07-03 06:36 | ED_ITS ---
HPI - Extremity Problem General: Chief complaint: Extremity Injury, Lower Stated complaint: knee pain Time Seen by Provider: 07/03/20 06:07 History of Present Illness: HPI Narrative: 84 yo female who present to the ER with complaints of swelling in the L knee. She is 2 wks post op from L knee arthroplasty with Dr. Padron. Denies any shortness of breath or chest pain. She denies any trauma to the knee. She was discharged home and has been participating in home physical therapy. MD Complaint: extremity pain and extremity swelling Onset (ago): day(s) Pain Consistency: constant Location: left Quality: aching and dull Radiation: none Relieving factors: nothing Exacerbating factors: nothing Associated symptoms: Deny chest pain, fever(s) or rash Context: immobilization and recent surgery/procedure Review of Systems Const: Denies: fever(s), chills, body aches, change in appetite, fatigue or malaise ENMT: Denies: throat pain, ear or mastoid pain, nasal discharge or nasal congestion Card: Denies: chest pain, edema, dyspnea on exertion or orthopnea Resp: Denies: dyspnea, productive cough or non-productive cough GI: Denies: abdominal pain, nausea, vomiting, hematemesis, coffee ground emesis, diarrhea, constipation, bloating, hematochezia or melena : Denies: flank pain, difficulty voiding, dysuria, urinary frequency or urinary urgency Skin/Breast: Denies: rash or pruritus PFSH ED PFSH: Medical History Coronary artery disease Hypothyroidism Osteoarthritis Surgical History H/O rotator cuff surgery History of bladder suspension procedure History of heart artery stent History of hysterectomy History of tonsillectomy Family History Other CAD (coronary artery disease) Social History Smoking and tobacco status: former smoker Alcohol intake: never Physical Exam Const: COMMON NORMALS: no acute distress GENERAL APPEARANCE: cooperative and comfortable ORIENTATION/CONSCIOUSNESS: Yes awake, Yes oriented to person, Yes oriented to place and Yes oriented to time HENMT: COMMON NORMALS: normocephalic, atraumatic and hearing grossly normal bilaterally HEAD & SCALP: normocephalic and atraumatic Eye: COMMON NORMALS: Equal, round and reactive pupils present, EOMs intact bilaterally, conjunctivae normal and no scleral icterus CONJUNCTIVA: Yes conjunctivae normal PUPIL: Yes Equal, round and reactive pupils present Neck/C-Spine: COMMON NORMALS: full ROM, no lymphadenopathy, supple and no JVD Lymph: LYMPHATIC: no lymphadenopathy noted and no lymphedema noted Resp: COMMON NORMALS: normal respiratory effort, No retractions, No use of accessory muscles and clear to auscultation bilaterally AUSCULTATION: clear to auscultation bilaterally Cardio: COMMON NORMALS: no JVD, regular rate, regular rhythm and No murmurs present (Cardio) RATE: regular rate RHYTHM: regular rhythm GI: COMMON NORMALS: Soft to palpation and No hepatosplenomegaly present AUSCULTATION: Yes normoactive bowel sounds PALPATION: Yes Soft to palpation, No Tenderness to palpation present (GI), No Guarding due to palpation present (GI) and Yes No hepatosplenomegaly present Extremity: NARRATIVE EXTREMITY EXAM: Localized swelling of the left knee harriet in place there is no redness or erythema. There is some mild bruising. There is notable swelling that is limited to the area around the knee. Swelling is consistent with postop status. Neuro: SENSORIUM/ORIENTATION: Yes oriented to person, Yes oriented to place and Yes oriented to time Course Vital Signs: Vital signs: Vital Signs Temperature 97.8 F 07/03/20 05:41 Pulse Rate 77 07/03/20 09:52 Respiratory Rate 18 07/03/20 09:52 Blood Pressure 129/77 07/03/20 09:52 Pulse Oximetry 95 07/03/20 09:52 MDM - Extremity (Nontraumatic) MDM Narrative: Medical decision making narrative: Reviewed the findings with the patient. X-ray does not show any acute fractures dislocation or movement of the prosthetic joint. In further discussion with her she is not been taking the pain medications probably as often as she should. I also think she would benefit from more help at home in terms of home health care. We will contact her home health and try to advance their level of care and increase her physical therapy. Advised her to ice the joint as well. Unfortunately optimal rehab would have been found in [facility] for a short stay but due to the recent pandemic she is unable to be placed at the [facility] as they are not taking any admissions. We discussed this with her at this point there is really not much more that can be done other than what is described above. Follow-up with Dr. Padron as scheduled and return to the emergency room if she has any worsening. Patient assures me that she has adequate supplies of pain medication. Lab Data: Labs: Lab Results 07/03/20 07/03/20 Range/Units 07:04 07:04 WBC 4.7 (4.0-10.0) 10^3/ uL RBC 3.58 L (4.1-5.3) 10^6/u L Hgb 10.5 L (11.5-15.3) g/dL Hct 33.2 L (37.0-47.0) % MCV 92.7 (81-99) fL MCH 29.3 (28.0-34.0) pg MCHC 31.6 (30.0-36.0) g/dL RDW 13.5 (12.1-15.1) % Plt Count 395 (130-400) 10^3/c mm MPV 8.8 (7.4-10.4) fL Neut % (Auto) 47.3 % Lymph % (Auto) 37.0 % [place] % (Auto) 8.4 % Eos % (Auto) 5.8 % Baso % (Auto) 1.1 % Neut # (Auto) 2.20 (1.8-7.7) 10^3/u L Lymph # (Auto) 1.7 (0.8-4.8) 10^3/u L [place] # (Auto) 0.4 (0.2-0.9) 10^3/u L Eos # (Auto) 0.3 (0.0-0.8) 10^3/u L Baso # (Auto) 0.1 (0.0-0.1) 10^3/u L Nucleated RBC % (a uto) 0 % Nucleated RBCs # 0.0 /100WBC Sodium 131 L (136-145) mmol/L Potassium 4.6 (3.5-5.1) mmol/L Chloride 98 (98-107) mmol/L Carbon Dioxide 25 (22-29) mmol/L Anion Gap 12.6 (5-19) BUN 10 (8-23) mg/dL Creatinine 0.7 (0.5-0.9) mg/dL GFR Calculation Not Reportable Glucose 106 (65-115) mg/dL Calculated Osmolal ity 271 L (285-295) mOsm/k g Calcium 9.2 (8.5-10.5) mg/dL Total Bilirubin 0.7 (0.15-1.2) mg/dL AST 22 (0-32) U/L ALT 15 (0-33) U/L Alkaline Phosphata se 123 H (35-105) IU/L C-Reactive Protein 22.4 H (0.0-4.9) mg/L Total Protein 6.7 (6.6-8.7) g/dL Albumin 4.1 (3.5-5.2) g/dL Globulin 2.6 (1.3-4.6) g/dL Discharge Plan Discharge Patient Disposition: Home Clinical Impression: Status post left knee replacement Condition: Stable Prescriptions: No Action hydrocodone-acetaminophen [Hancock] 5-325 mg tablet 1 tab PO Q4H PRN (Reason: pain) 7 Days Qty: 30 RF: 0 nitroglycerin 0.4 mg tablet, sublingual 0.4 mg SUBLINGUAL Q5M PRN (Reason: chest pain) Qty: 25 RF: 0 celecoxib 200 mg Capsule 200 mg PO Q12H 15 Days Qty: 30 RF: 0 losartan 50 mg tablet 50 mg PO DAILY RF: 0 clopidogrel 75 mg tablet 75 mg PO DAILY RF: 0 aspirin [Aspir-81] 81 mg Tablet,Delayed Release (Dr/Ec) 81 mg PO DAILY RF: 0 levothyroxine 75 mcg tablet 75 mcg PO DAILY RF: 0 simvastatin 20 mg tablet 20 mg PO DAILY RF: 0 oxybutynin chloride 5 mg tablet 5 mg PO TID RF: 0 metoprolol tartrate 25 mg tablet 12.5 mg PO BID RF: 0 Hair Skin And Nails Gummies 1 tab PO BID RF: 0 hydrocodone-acetaminophen 5-325 mg tablet 1 tab PO Q12H PRN (Reason: pain) Qty: 14 RF: 0 Discharge Orders: Discharge Order (Routine); Ordered 07/03/20 Ordered By: Preston Louise Referrals: [place],Paul, MD [Primary Care Provider] - Discharge Diet: Usual diet Discharge Activity: Limit activity as instructed Activity Restrictions/Additional Instructions: Ice knee 3-4 times a day. Use previously prescribed pain medications. Follow- up with Dr. Campbell as planned. Continue rehab through home health. 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
--- NOTE | 2020-07-03 06:38 | USR_ITS ---
PROCEDURE INFORMATION: Exam: US Duplex Left Lower Extremity Veins, Limited Exam date and time: 07/03/2020 6:38 AM Age: 84 years old Clinical indication: Swelling (edema) of limb; Lower extremity, left; Prior surgery; Surgery date: <1 month; Surgery type: Left knee surgery TECHNIQUE: Imaging protocol: Real-time Duplex ultrasound of the Left Lower Extremity with 2-D gordon scale, color Doppler flow and spectral waveform analysis with image documentation. Limited exam focused on the left lower extremity veins. COMPARISON: No relevant prior studies available. FINDINGS: Left deep veins: Unremarkable. The common femoral, femoral, proximal profunda femoral, popliteal and visualized calf veins are patent without thrombus. Normal Doppler waveforms. Normal compressibility and/or augmentation response. Left superficial veins: Unremarkable. Saphenofemoral junction is patent without thrombus. Soft tissues: Soft tissue edema noted. No fluid collections visualized. US/CV venous duplex [facility] [id number] IMPRESSION: No evidence of left lower extremity DVT.
[2020-07-03 07:18] LABS: Basophils # 0.1 10^3/uL (0.0-0.1); Basophils % 1.1 %; Eosinophils # 0.3 10^3/uL (0.0-0.8); Eosinophils % 5.8 %; Hematocrit 33.2 % (37.0-47.0); Hemoglobin 10.5 g/dL (11.5-15.3); Lymphocytes # 1.7 10^3/uL (0.8-4.8); Mean Corpuscular HGB Conc 31.6 g/dL (30.0-36.0); Mean Corpuscular Hemoglobin 29.3 pg (28.0-34.0); Mean Corpuscular Volume 92.7 fL (81-99); Mean Platelet Volume 8.8 fL (7.4-10.4); Monocytes # 0.4 10^3/uL (0.2-0.9); Monocytes % 8.4 %; Neutrophils % 47.3 %; Nucleated Red Blood Cells % 0 %; Platelet Count 395 10^3/cmm (130-400); Red Blood Count 3.58 10^6/uL (4.1-5.3); Red Cell Distribution Width 13.5 % (12.1-15.1); White Blood Count 4.7 10^3/uL (4.0-10.0)
[2020-07-03 07:41] LABS: Alanine Aminotransferase 15 U/L (0-33); Albumin Level 4.1 g/dL (3.5-5.2); Alkaline Phosphatase 123 IU/L (35-105); Anion Gap 12.6 (5-19); Aspartate Amino Transferase 22 U/L (0-32); Blood Urea Nitrogen 10 mg/dL (8-23); C Reactive Protein 22.4 mg/L (0.0-4.9); Calcium 9.2 mg/dL (8.5-10.5); Carbon Dioxide 25 mmol/L (22-29); Chloride 98 mmol/L (98-107); Globulin 2.6 g/dL (1.3-4.6); Glucose 106 mg/dL (65-115); Osmolality Calculated 271 mOsm/kg (285-295); Potassium 4.6 mmol/L (3.5-5.1); Sodium 131 mmol/L (136-145); Total Bilirubin 0.7 mg/dL (0.15-1.2); Total Protein 6.7 g/dL (6.6-8.7)
[2020-07-03 09:52] VITALS: BP 129/77; PULSE 77; RESP 18; O2SAT 95
== END 2020-07-03 09:57 | disposition home or self-care (01) ==
PROVIDERS: Emergency Provider Family Medicine; PCP Family Medicine
DX: M79.89 Other specified soft tissue disorders (principal); Z96.652 Presence of left artificial knee joint; Z79.02 Long term (current) use of antithrombotics/antiplatelets; Z79.82 Long term (current) use of aspirin; I25.10 Atherosclerotic heart disease of native coronary artery without angina pectoris; Z87.891 Personal history of nicotine dependence
CPT/HCPCS: 12345; 36415; 73562; 80053; 85025; 86140; 87040; 93971; 96372; 96374; 96375; 99281; 99283

== ENCOUNTER 2020-07-09 06:00 | Outpatient (RCR) | payer MEDICARE, SELFPAY | END 2020-07-31 23:59 | disposition home or self-care (01) | LOC: GPT 06:00 | PROVIDERS: PCP Family Medicine; Referring Provider Orthopaedic Surgery; Visit Provider Orthopaedic Surgery | DX: Z47.1 Aftercare following joint replacement surgery (principal); Z96.652 Presence of left artificial knee joint | CPT/HCPCS: 97032; 97110; 97116; 97140; 97161; 97530 ==

== ENCOUNTER → 2020-08-04 08:05 | Outpatient (BNVA) | payer MEDICARE, SELFPAY | PROVIDERS: PCP Family Medicine; Visit Provider Orthopaedic Surgery | DX: Z96.652 Presence of left artificial knee joint (principal) | CPT/HCPCS: 73560; 73565 ==

== ENCOUNTER 2021-01-31 14:14 | Outpatient (CLI) | payer MEDICARE, SELFPAY ==
--- NOTE | 2021-01-31 14:19 | MM_ITS ---
WS: [id number] BILATERAL DIGITAL SCREENING MAMMOGRAPHY WITH CAD CLINICAL INFORMATION: SCREENING HISTORY: Screening mammogram. No current complaints. COMPARISON: None. TECHNIQUE: Bilateral CC and MLO views. FINDINGS: The breasts are composed of heterogeneous fibroglandular density tissue, which can limit the detectio n of small underlying mass lesions. Vascular calcifications. No suspicious mass, asymmetry, calcifica tions, or architectural distortion. No evidence of malignancy. MM/[place] [id number] IMPRESSION: BI-RADS: 2-Benign FOLLOW UP: 1 Year Follow-up Recommend return to annual screening mammography.
--- NOTE | 2021-01-31 14:52 | US_ITS ---
WS: [id number] ULTRASOUND THYROID TECHNIQUE: Ultrasound of the thyroid. CLINICAL INFORMATION: R THYROID NODULE COMPARISON: Ultrasound July 2015 FINDINGS: Thyroid: Right and left thyroid lobes are normal in size and echotexture. Right thyroid lobe: 6.0 cm x 2.8 cm x 2.4 cm Complex cystic nodule right thyroid measuring 1.8 x 1.7 x 2.1 cm with internal echogenic debris stabl e from previous Left thyroid lobe: 4.5 cm x 1.4 cm x 1.4 cm. Additional small complex cystic nodule measuring 0.2 x 0.3 x 0.4 cm stable from previous Isthmus: 0.5 mm. Cervical lymphadenopathy: None. US/US thyroid [id number] IMPRESSION: 1. Complex cystic right thyroid nodule is unchanged since 2014 2. Small complex cystic nodule left mid thyroid is unchanged.
== END 2021-01-31 14:15 | disposition home or self-care (01) ==
LOC: RADSHAW 14:17
PROVIDERS: PCP Family Medicine; Visit Provider Family Medicine
DX: Z12.31 Encounter for screening mammogram for malignant neoplasm of breast (principal); E04.1 Nontoxic single thyroid nodule
CPT/HCPCS: 76536; 77067

== ENCOUNTER 2021-11-07 13:11 | Outpatient (CLI) | payer MEDICARE, SELFPAY ==
--- NOTE | 2021-11-07 13:31 | XR_ITS ---
WS: [id number] XR lumbar spine 2-3V* [id number] REASON FOR EXAM: LOW BACK PAIN FINDINGS: Significant loss of bone density. Mild biconcave compression deformities of the lumbar vertebrae. Mild narrowing of the L1-L2 interspace and the L5-S1 interspace. 6 mm of anterolisthesis of L4 and L5 and 7 mm of anterolisthesis of L5 on S1. Moderate degenerative changes in the facet joints L3-S1. XR/XR lumbar spine 2-3V* [id number] IMPRESSION: Compression deformities in the upper lumbar spine of unknown chronicity. These deformities were not present in the lumbar spine on a CT the abdomen 12/17/2017. The listheses at L4-L5 and L5-S1 do not appear to change significantly.
== END 2021-11-07 13:12 | disposition home or self-care (01) ==
PROVIDERS: PCP Family Medicine; Visit Provider Family Medicine
DX: M54.50 Low back pain, unspecified (principal)
CPT/HCPCS: 72100

== ENCOUNTER → 2022-09-11 13:44 | Outpatient (BNVA) | payer MEDICARE, SELFPAY | PROVIDERS: PCP Family Medicine; Visit Provider Family Medicine | DX: E55.9 Vitamin D deficiency, unspecified (principal); Z51.81 Encounter for therapeutic drug level monitoring; I10 Essential (primary) hypertension; E03.9 Hypothyroidism, unspecified; M17.12 Unilateral primary osteoarthritis, left knee; E78.5 Hyperlipidemia, unspecified; M19.90 Unspecified osteoarthritis, unspecified site; I25.10 Atherosclerotic heart disease of native coronary artery without angina pectoris; Z13.220 Encounter for screening for lipoid disorders; M54.50 Low back pain, unspecified | CPT/HCPCS: 80053; 80061; 82306; 84439; 84443; 85025 ==

== ENCOUNTER → 2023-01-29 10:51 | Outpatient (BNVA) | payer MEDICARE, SELFPAY | PROVIDERS: PCP Family Medicine; Visit Provider Family Medicine | DX: Z00.00 Encounter for general adult medical examination without abnormal findings (principal); Z51.81 Encounter for therapeutic drug level monitoring; E03.9 Hypothyroidism, unspecified; E55.9 Vitamin D deficiency, unspecified; I10 Essential (primary) hypertension; E78.5 Hyperlipidemia, unspecified | CPT/HCPCS: 80053; 82306; 84439; 84443; 85025 ==

== ENCOUNTER 2023-02-07 14:13 | Emergency (ER) | payer MEDICARE, SELFPAY ==
[2023-02-07 15:09] VITALS: BP 115/75; PULSE 55; RESP 18; TEMP 36.6; O2SAT 95; BMI 24.7
--- NOTE | 2023-02-07 16:23 | W.ED.ANIMALB ---
HPI - Animal Bite General: Chief Complaint: Animal Bite Stated Complaint: tick bites/reddness Time Seen by Provider: 02/07/23 16:00 History of Present Illness: Patient is an 87-year-old female comes to the ED with tick bite. Patient says over a month ago she had a tick bite on her right and left flank. She removed the ticks and she slowly started developing a rash around tick bites. Approximately 5 to 7 days ago patient's rash started getting a lot worse and she went and saw a nurse practitioner and they thought the rash was fungal and put her on an antifungal med. She then went and saw her PCP Dr. Campbell 2 days ago on Sunday and he put her on an antibiotic. She has now been taking antibiotic for 2 days and says the rash is gotten a little better but she still having quite a bit of pain. She describes rash as red, warm and tender to the touch. She has noticed some clear discharge from rash as well. Associated symptoms: Deny chills, fever(s) or headache(s) Review of Systems Const: Denies: fever(s), chills or fatigue Eyes: Denies: change in vision or eye discomfort ENMT: Denies: throat pain, odynophagia, nasal discharge or nasal congestion Card: Denies: chest pain, palpitations, edema, swelling of feet/ankles, dyspnea on exertion or orthopnea Resp: Denies: dyspnea, productive cough or non-productive cough GI: Denies: abdominal pain, nausea, vomiting, diarrhea, constipation or hematochezia : Denies: flank pain, dysuria or hematuria Musc: Denies: neck pain, back pain or extremity swelling Skin/Breast: Reports: rash (Tender her rash on bilateral flanks); Denies: new lesions Neuro: Denies: headache(s), numbness in extremities or weakness in extremities PFSH ED PFSH: Medical History Coronary artery disease Hypothyroidism Osteoarthritis Surgical History H/O rotator cuff surgery History of bladder suspension procedure History of heart artery stent History of hysterectomy History of knee replacement History of tonsillectomy Family History Other CAD (coronary artery disease) Social History Smoking and tobacco status: former smoker Quit status (tobacco): has quit using tobacco Year quit tobacco: 1970 Former quit date comment: Smoked for 19 years - about 10 pack years Alcohol intake: current Alcohol intake frequency: holidays/special occasions only Substance/Drug Use: never Physical Exam Const: COMMON NORMALS: no acute distress, patient oriented x3 and alert GENERAL APPEARANCE: cooperative HENMT: COMMON NORMALS: normocephalic HEAD & SCALP: normocephalic MOUTH: Normal oral and palatal mucosa present THROAT: posterior oropharynx normal and uvula midline Neck/C-Spine: COMMON NORMALS: supple GENERAL: Yes normal visual inspection Resp: COMMON NORMALS: normal respiratory effort, No retractions, No use of accessory muscles and clear to auscultation bilaterally AUSCULTATION: clear to auscultation bilaterally Cardio: COMMON NORMALS: regular rate, regular rhythm, S1 normal heart sound present, S2 normal heart sound present, No gallops present (Cardio), No clicks present (Cardio), No murmurs present (Cardio) and Peripheral pulses 2+ throughout RATE: regular rate RHYTHM: regular rhythm HEART SOUNDS: S1 normal heart sound present and S2 normal heart sound present PERIPHERAL PULSES: Peripheral pulses 2+ throughout GI: COMMON NORMALS: Normal to inspection, nondistended, normoactive bowel sounds present, Soft to palpation, non-tender and no masses PALPATION: Yes Soft to palpation : COMMON NORMALS: Yes no CVA tenderness BLADDER/KIDNEY EXAM: Yes no CVA tenderness Back/Pelvis: COMMON NORMALS: no CVA tenderness Extremity: COMMON NORMALS: normal to inspection Neuro: COMMON NORMALS: patient oriented x3 SENSORIUM/ORIENTATION: Yes alert GAIT: Yes Normal gait present Skin: NARRATIVE SKIN EXAM: left flank of abdomen?large erythemic, warm and tender maculopapular rash present. No visible discharge seen. No erythema migrans. Right flank-large erythemic, warm and tender maculopapular rash present. No visible discharge seen. No erythema migrans. GENERAL SKIN EXAM: dry skin Course Vital Signs: Vital signs: Vital Signs Temperature 97.9 F 02/07/23 15:09 Pulse Rate 50 L 02/07/23 17:26 Respiratory Rate 18 02/07/23 15:09 Blood Pressure 146/72 02/07/23 17:26 Pulse Oximetry 97 02/07/23 17:26 Oxygen Delivery Me thod Room Air 02/07/23 16:49 MDM - Animal Bite Medical Decision Making Patient is an 87-year-old female comes to the ED with tick bite. Patient says over a month ago she had a tick bite on her right and left flank. She removed the ticks and she slowly started developing a rash around tick bites. Approximately 5 to 7 days ago patient's rash started getting a lot worse and she went and saw a nurse practitioner and they thought the rash was fungal and put her on an antifungal med. She then went and saw her PCP Dr. Campbell 2 days ago on Sunday and he put her on an antibiotic. She has now been taking antibiotic for 2 days and says the rash is gotten a little better but she still having quite a bit of pain. She describes rash as red, warm and tender to the touch. She has noticed some clear discharge from rash as well. Vitals are stable. Patient appears nontoxic in no acute distress. Left flank of abdomen?large erythemic, warm and tender maculopapular rash present. No visible discharge seen. No erythema migrans. Right flank-large erythemic, warm and tender maculopapular rash present. No visible discharge seen. No erythema migrans. White count normal the rest of the labs are unremarkable. Patient was given IV antibiotics to treat cellulitis. She was stable for discharge home and sent home with a prescription for clindamycin and steroid cream to see if that does help with some of her rash. Follow-up with her PCP in the next couple days for reevaluation. Strict return to ED precautions given. Patient understood and agreed with plan. Lab Data I reviewed the patient's lab results. 02/07/23 16:30 02/07/23 16:30 Laboratory Results WBC 4.8 10^3/uL (4.0-10.0) 02/07/23 16:30 RBC 4.36 10^6/uL (4.1-5.3) 02/07/23 16:30 Hgb 13.7 g/dL (11.5-15.3) 02/07/23 16:30 Hct 41.0 % (37.0-47.0) 02/07/23 16: MCV 94.0 fl (81-99) 02/07/23 16: MCH 31.4 pg (28.0-34.0) 02/07/23 16: MCHC 33.4 g/dL (30.0-36.0) 02/07/23 16: RDW 13.1 % (12.1-15.1) 02/07/23 16:30 Plt Count 186 10^3/cmm (130-400) 02/07/23 16: MPV 9.3 fL (7.4-10.4) 02/07/23 16:30 Neut % (Auto) 39.6 % 02/07/23 16:30 Lymph % (Auto) 41.9 % 02/07/23 16:30 [place] % (Auto) 9.7 % 02/07/23 16:30 Eos % (Auto) 7.6 % 02/07/23 16:30 Baso % (Auto) 1.0 % 02/07/23 16: Neut # (Auto) 1.91 10^3/uL (1.8-7.7) 02/07/23 16:30 Lymph # (Auto) 2.0 10^3/uL (0.8-4.8) 02/07/23 16:30 [place] # (Auto) 0.5 10^3/uL (0.2-0.9) 02/07/23 16:30 Eos # (Auto) 0.4 10^3/uL (0.0-0.8) 02/07/23 16:30 Baso # (Auto) 0.1 10^3/uL (0.0-0.1) 02/07/23 16: Nucleated RBC % (auto) 0 % 02/07/23 16: Nucleated RBCs # 0.0 /100WBC 02/07/23 16:30 Sodium 132 mmol/L (136-145) L 02/07/23 16:30 Potassium 4.7 mmol/L (3.5-5.1) 02/07/23 16:30 Chloride 97 mmol/L (98-107) L 02/07/23 16:30 Carbon Dioxide 24 mmol/L (22-29) 02/07/23 16:30 Anion Gap 15.7 (5-19) 02/07/23 16:30 BUN 14 mg/dL (8-23) 02/07/23 16:30 Creatinine 1.0 mg/dL (0.5-0.9) H 02/07/23 16:30 GFR Calculation Not Reportable 02/07/23 16:30 Glucose 93 mg/dL (65-115) 02/07/23 16:30 Calculated Osmolality 274 mOsm/kg (285-295) L 02/07/23 16:30 Calcium 8.9 mg/dL (8.5-10.5) 02/07/23 16:30 Total Bilirubin 0.2 mg/dL (0.15-1.2) 02/07/23 16:30 AST 17 U/L (0-32) 02/07/23 16:30 ALT 14 U/L (0-33) 02/07/23 16:30 Alkaline Phosphatase 61 U/L (35-105) 02/07/23 16:30 Total Protein 6.4 g/dL (6.6-8.7) L 02/07/23 16:30 Albumin 4.1 g/dL (3.5-5.2) 02/07/23 16:30 Globulin 2.3 g/dL (1.3-4.6) 02/07/23 16:30 Discharge Plan Discharge Patient Disposition: Home Clinical Impression: Cellulitis Qualifiers: Site of cellulitis: trunk Site of cellulitis of trunk: abdominal wall Qualified Code(s): L03.311 - Cellulitis of abdominal wall Condition: Stable Prescriptions: New fluconazole 150 mg tablet 150 mg PO Q3D Qty: 2 0RF Rx Instructions: may repeat second dose 72 hrs after first dose if symptoms persist triamcinolone acetonide 0.1 % cream 1 applic topical BID PRN (Reason: Skin rash) Qty: 80 0RF clindamycin HCl 150 mg capsule 300 mg PO QID 10 Days Qty: 80 0RF No Action nitroglycerin 0.4 mg tablet, sublingual 0.4 mg SUBLINGUAL Q5M PRN (Reason: chest pain) Qty: 25 0RF Rx Instructions: do not exceed 3 doses per episode cholecalciferol (vitamin D3) 25 mcg (1,000 unit) tablet,chewable 5,000 mcg PO DAILY ketoconazole 2 % shampoo 1 applic topical .3xweekly Qty: 120 3RF Rx Instructions: Lather into scalp 3 times weekly. Allow to sit on scalp for 5 minutes before rinsing. mometasone 0.1 % solution 1 applic topical DAILY PRN (Reason: itching) Qty: 60 3RF Rx Instructions: to scalp triamcinolone acetonide 0.1 % cream 1 applic topical BID Qty: 453.6 0RF Rx Instructions: scalp, extremities no more than 2 wks/mo as needed hydrocortisone 2.5 % cream 1 applic topical DAILY PRN (Reason: skin irritation) Qty: 30 3RF mupirocin 2 % ointment 1 applic topical BID Qty: 15 2RF sulfamethoxazole-trimethoprim [Bactrim DS] 800-160 mg tablet 1 tab PO BID Qty: 14 0RF doxycycline hyclate 100 mg tablet 100 mg PO BID Qty: 20 0RF fluconazole [Diflucan] 150 mg tablet 150 mg PO Q3D Qty: 2 0RF metoprolol tartrate 25 mg tablet 12.5 mg PO BID Qty: 90 3RF tramadol 50 mg tablet 50 mg PO TID PRN (Reason: pain) Qty: 30 0RF simvastatin 20 mg tablet See Rx Instructions .ROUTE .COMPLEX Qty: 90 3RF Dose Instruction: TAKE 1 TABLET BY MOUTH EVERY DAY AT BEDTIME FOR CHOLESTEROL Rx Instructions: TAKE 1 TABLET BY MOUTH EVERY DAY AT BEDTIME FOR CHOLESTEROL oxybutynin chloride 5 mg tablet See Rx Instructions .ROUTE .COMPLEX Qty: 270 2RF Dose Instruction: TAKE 1 TABLET BY MOUTH THREE TIMES DAILY Rx Instructions: TAKE 1 TABLET BY MOUTH THREE TIMES DAILY levothyroxine 75 mcg tablet See Rx Instructions .ROUTE .COMPLEX Qty: 30 6RF Dose Instruction: TAKE 1 TABLET BY MOUTH ONCE DAILY IN THE MORNING WITH WATER ONLY 30 MINUTES BEFORE BREAKFAST Rx Instructions: TAKE 1 TABLET BY MOUTH ONCE DAILY IN THE MORNING WITH WATER ONLY 30 MINUTES BEFORE BREAKFAST losartan 50 mg tablet 50 mg PO DAILY clopidogrel 75 mg tablet 75 mg PO DAILY aspirin [Aspir-81] 81 mg Tablet,Delayed Release (Dr/Ec) 81 mg PO DAILY Hair Skin And Nails Gummies 1 tab PO BID Discharge Orders: Discharge ED (Routine); Ordered 02/07/23 Ordered By: Aung Perdomo Referrals: Aung Campbell MD [Primary Care Provider] - Discharge Diet: Regular Discharge Activity: Increase activity as tolerated Patient Instructions: Cellulitis (ED) Activity Restrictions/Additional Instructions: Follow-up with Dr. Campbell on Sunday to have cellulitis reevaluated. Take medications as prescribed. Return to the ER or your medical provider if condition worsens. Please read and understand discharge instructions. Thank you for choosing [facility] for your healthcare needs today. Please realize this is an emergency room and that we are providing you with a medical screening exam and this may not be complete and all inclusive of all the testing and or work up that you may need to determine your ailment or severity of your illness. It is very important that you follow up as instructed or that you return to the Emergency Department should you have concerns or if your condition changes or worsens in any way. Coding Level of Care Code ED Mower Sharpener for Lala Cruz
[2023-02-07] MEDS: HYDROcodone-acetaminophen 7.5-325 mg Tablet 1 TAB PO (16:32)
[2023-02-07 16:37] LABS: Basophils # 0.1 10^3/uL (0.0-0.1); Eosinophils # 0.4 10^3/uL (0.0-0.8); Eosinophils % 7.6 %; Hemoglobin 13.7 g/dL (11.5-15.3); Lymphocytes % 41.9 %; Mean Corpuscular HGB Conc 33.4 g/dL (30.0-36.0); Mean Corpuscular Hemoglobin 31.4 pg (28.0-34.0); Mean Platelet Volume 9.3 fL (7.4-10.4); Monocytes # 0.5 10^3/uL (0.2-0.9); Monocytes % 9.7 %; Neutrophils # 1.91 10^3/uL (1.8-7.7); Neutrophils % 39.6 %; Nucleated Red Blood Cells % 0 %; Platelet Count 186 10^3/cmm (130-400); Red Blood Count 4.36 10^6/uL (4.1-5.3); Red Cell Distribution Width 13.1 % (12.1-15.1); White Blood Count 4.8 10^3/uL (4.0-10.0)
[2023-02-07] MEDS: cefTRIAXone 1,000 MG in sodium chloride 0.9% (plus) 50 ML 100 MG IV (16:44)
[2023-02-07 16:49] VITALS: PULSE 48; O2SAT 99
[2023-02-07 17:02] LABS: Alanine Aminotransferase 14 U/L (0-33); Albumin Level 4.1 g/dL (3.5-5.2); Alkaline Phosphatase 61 U/L (35-105); Anion Gap 15.7 (5-19); Aspartate Amino Transferase 17 U/L (0-32); Blood Urea Nitrogen 14 mg/dL (8-23); Calcium 8.9 mg/dL (8.5-10.5); Carbon Dioxide 24 mmol/L (22-29); Chloride 97 mmol/L (98-107); Globulin 2.3 g/dL (1.3-4.6); Glucose 93 mg/dL (65-115); Osmolality Calculated 274 mOsm/kg (285-295); Potassium 4.7 mmol/L (3.5-5.1); Sodium 132 mmol/L (136-145); Total Bilirubin 0.2 mg/dL (0.15-1.2); Total Protein 6.4 g/dL (6.6-8.7)
[2023-02-07 17:26] VITALS: BP 146/72; PULSE 50; O2SAT 97
== END 2023-02-07 17:27 | disposition home or self-care (01) ==
PROVIDERS: Emergency Provider Physician Assistant; PCP Family Medicine
DX: L03.311 Cellulitis of abdominal wall (principal); Z79.82 Long term (current) use of aspirin; Z79.02 Long term (current) use of antithrombotics/antiplatelets; I25.10 Atherosclerotic heart disease of native coronary artery without angina pectoris; Z87.891 Personal history of nicotine dependence
CPT/HCPCS: 80053; 85025; 96374; 99283; J0696

== ENCOUNTER → 2023-05-01 13:19 | Outpatient (BNVA) | payer MEDICARE, SELFPAY | PROVIDERS: PCP Family Medicine; Visit Provider Nurse Practitioner Family | DX: D22.5 Melanocytic nevi of trunk (principal) | CPT/HCPCS: 99213 ==

== ENCOUNTER 2023-12-17 14:07 | Outpatient (CLI) | payer MEDICARE, SELFPAY ==
--- NOTE | 2023-12-17 14:12 | XRR_ITS ---
PROCEDURE INFORMATION: Exam: XR Lumbosacral Spine Exam date and time: 12/17/2023 2:23 PM Age: 88 years old Clinical indication: Low back pain; Additional info: Lower back pain TECHNIQUE: Imaging protocol: Radiologic exam of the lumbosacral spine. Views: 2 or 3 views. COMPARISON: CR XR lumbar spine 2-3V* [id number] 11/07/2021 1:43 PM FINDINGS: Bones/joints: Stable grade 1 anterolisthesis of L5 on S1 since 11/07/2021. Stable trace anterolisthesis of L4 on L5. Stable mild superior endplate compression deformity of L3. Stable moderate to severe multilevel bilateral lumbar facet spondylosis, greater at the lower lumbar levels. No acute fracture. The visible portion of the pelvis and sacrum is intact. Visible portions of the ribs are intact. Soft tissues: Unremarkable. Vasculature: There is moderate aortic atherosclerotic disease. There is extensive vascular calcification in the left upper abdomen. XR/XR lumbar spine 2-3V* [id number] IMPRESSION: 1. No change since 11/07/2021. 2. Grade 1 anterolisthesis of L4 on L5 and L5 on S1. Pars interarticularis are obscured. 3. Stable mild L3 superior endplate compression fracture. 4. Stable lumbar facet spondylosis.
== END 2023-12-17 14:08 | disposition home or self-care (01) ==
LOC: RAD 14:09
PROVIDERS: PCP Family Medicine; Visit Provider Family Medicine
DX: M48.56XA Collapsed vertebra, not elsewhere classified, lumbar region, initial encounter for fracture (principal); M47.896 Other spondylosis, lumbar region; M54.50 Low back pain, unspecified
CPT/HCPCS: 72100

== ENCOUNTER 2024-02-16 13:21 | Emergency (ER) | payer MEDICARE, SELFPAY ==
[2024-02-16 13:32] VITALS: PULSE 49; RESP 18; TEMP 37.1; O2SAT 97; BMI 24.7
--- NOTE | 2024-02-16 14:15 | CTR_ITS ---
PROCEDURE INFORMATION: Exam: CT Head Without Contrast Exam date and time: 02/16/2024 2:39 PM Age: 88 years old Clinical indication: Pain; Headache not specified; Additional info: Sudden onset MARTINEZ TECHNIQUE: Imaging protocol: Computed tomography of the head without contrast. Radiation optimization: All CT scans at this facility use at least one of these dose optimization techniques: automated exposure control; mA and/or kV adjustment per patient size (includes targeted exams where dose is matched to clinical indication); or iterative reconstruction. COMPARISON: [place] [id number] 01/31/2021 3:12 PM RADIATION DOSE METRICS: Total DLP (mGy-cm): 1026.8 FINDINGS: Brain: There are bilateral periventricular white matter and centrum semiovale hypodensities consistent with chronic ischemic small vessel disease. No recent infarct, intracranial bleed or mass effect. Cerebral ventricles: No ventriculomegaly. Paranasal sinuses: Visualized sinuses are unremarkable. No fluid levels. Mastoid air cells: Visualized mastoid air cells are well aerated. Bones: Unremarkable. No acute fracture. Soft tissues: Unremarkable. Vasculature: There are vascular calcifications. CT/CT head wo con* [id number] IMPRESSION: No large territorial infarct or intracranial bleed.
--- NOTE | 2024-02-16 14:15 | ECG_ITS ---
[facility] Test Date: 2024-02-16 Pat Name: Kandis Landin Department: Room: Gender: Female Bankruptcy Manager: : 1935 Requested By: Preston Guevara Order Number: [id number] Carlo MD: Suyapa Call M.D. Measurements Intervals [place] Rate: 52 P: 37 AR: 201 QRS: -22 QRSD: 82 T: 41 QT: 477 QTc: 446 Interpretive Statements SINUS BRADYCARDIA WITH OCCASIONAL SUPRAVENTRICULAR PREMATURE COMPLEXES LEFT VENTRICULAR HYPERTROPHY AND ST-T CHANGE [VOLTAGE CRITERIA PLUS ST/T ABNORMALITY] No previous ECG available for comparison Electronically Signed On 02-17-2024 13:32:36 CDT by Suyapa Call M.D. [id number]
--- NOTE | 2024-02-16 14:17 | ED_ITS ---
HPI - Headache 2 General: Chief Complaint: Headache Stated Complaint: head pain Time Seen by Provider: 02/16/24 14:01 Source: patient Mode of arrival: ambulatory History of Present Illness: 88-year-old female presents emergency ro om complaining of stabbing pain in the right side of her head radiating to the ear that began suddenly this morning and has had increased. She is tearful. She does not have any facial drooping. No trauma. No recent fever sweats chills no outbreak of a rash. No ear drainage. Onset (ago): hour(s) Onset description: suddenly Location: right Severity: severe Quality & Timing: sharp Exacerbating factors: none Relieving factors: nothing Associated symptoms: Deny chest pain, confusion, cough, diaphoresis, eye pain, eye redness, fever(s), lightheadedness, loss of vision, malaise, nausea, neck stiffness, numbness, paresthesias, photophobia, pre-syncope, rash, seizures, short of breath, sound sensitivity, syncope, vomiting or weakness Treatments prior to arrival: none Review of Systems 2 Const: Denies: fever(s), chills, malaise or diaphoresis Card: Denies: chest pain, lightheadedness, syncope or pre-syncope Resp: Denies: dyspnea GI: Denies: abdominal pain, nausea or vomiting : Denies: dysuria, urinary frequency or urinary urgency Musc: Denies: neck pain or back pain Skin/Breast: Denies: rash Neuro: Denies: confusion PFSH ED 2 PFSH: Medical History Hypothyroidism Osteoarthritis Coronary artery disease Surgical History History of knee replacement History of heart artery stent H/O rotator cuff surgery History of hysterectomy History of tonsillectomy History of bladder suspension procedure Family History Other CAD (coronary artery disease) Social History Smoking and tobacco/nicotine status: former use of tobacco/nicotine Quit status (tobacco/nicotine): has quit using Year quit tobacco: 1970 Former quit date comment: Smoked for 19 years - about 10 pack years Alcohol intake: current Alcohol intake frequency: holidays/special occasions only Substance/Drug Use: never Physical Exam 2 Const: GENERAL APPEARANCE: cooperative and comfortable O RIENTATION/CONSCIOUSNESS: Yes awake, Yes oriented to person, Yes oriented to place and Yes oriented to time HENMT: COMMON NORMALS: normocephalic, atraumatic and hearing grossly normal bilaterally HEAD & SCALP: normocephalic and atraumatic Eye: DIRECT OPHTHALMOSCOPY: No photophobia Resp: COMMON NORMALS: normal respiratory effort, No retractions, No use of accessory muscles and clear to auscultation bilaterally AUSCULTATION: clear to auscultation bilaterally Cardio: COMMON NORMALS: regular rate, regular rhythm and No murmurs present (Cardio) RATE: regular rate RHYTHM: regular rhythm GI: COMMON NORMALS: Soft to palpation and No hepatosplenomegaly present A USCULTATION: Yes normoactive bowel sounds PALPATION: Yes Soft to palpation, No Tenderness to palpation present (GI), No Guarding due to palpation present (GI) and Yes No hepatosplenomegaly present Extremity: COMMON NORMALS: normal to inspection, capillary refill normal, no clubbing, cyanosis or edema, no calf tenderness and no pedal edema Neuro: SENSORIUM/ORIENTATION: Yes oriented to person, Yes oriented to place and Yes oriented to time OTHER: NIH score 0 Skin: COMMON NORMALS: no rashes or lesions noted GENERAL SKIN EXAM: no rashes or lesions noted Course 2 Vital Signs: Vital signs: Vital Signs Temperature 98.7 F 02/16/24 17:11 Pulse Rate 94 02/16/24 17:11 Respiratory Rate 18 02/16/24 17:11 Blood Pressure 140/71 02/16/24 17:11 Pulse Oximetry 96 02/16/24 17:11 Oxygen Delivery Me thod Room Air 02/16/24 17:08 MDM - Headache Medical Decision Making CT head negative. No focal neurologic deficits are noted. All of her symptoms have resolved. I suspect she had a facial nerve palsy. Suspicious for trigeminal neuralgia also had resolved completely with medications given. Patient given prescription for carbamazepine 200 mg twice daily. Advised to return if pain recurs and is uncontrollable. If she does have recurrent she needs to follow-up either in the emergency room or with her primary care doctor Medical Records I reviewed the patient's medical records. Lab Data I reviewed the patient's lab results. 02/16/24 14:15 02/16/24 14:[address] 02/16/24 14:15 IMPRESSION: No large territorial infarct or intracranial bleed. Laboratory Results WBC 4.78 10^3/uL (3.29-11.43) 02/16/24 14:15 RBC 4.47 10^6/uL (3.85-5.65) 02/16/24 14:15 Hgb 13.80 g/dL (11.27-16.99) 02/16/24 14:15 Hct 41.5 % (36-47) 02/16/24 14:15 MCV 92.8 fl (85-98) 02/16/24 14:15 MCH 30.9 pg (27-33) 02/16/24 14:15 MCHC 33.3 g/dL (30-55) 02/16/24 14:15 RDW 13.1 % (12.1-15.1) 02/16/24 14:15 Plt Count 185 10^3/cmm (157-399) 02/16/24 14:15 MPV 9.5 fL (7.4-10.4) 02/16/24 14:15 Neut % (Auto) 40.0 % 02/16/24 14:15 Lymph % (Auto) 42.7 % 02/16/24 14:15 [place] % (Auto) 9.0 % 02/16/24 14:15 Eos % (Auto) 7.1 % 02/16/24 14:15 Baso % (Auto) 1.0 % 02/16/24 14:15 Neut # (Auto) 1.91 10^3/uL (1.8-7.7) 02/16/24 14:15 Lymph # (Auto) 2.0 10^3/uL (0.8-4.8) 02/16/24 14:15 [place] # (Auto) 0.4 10^3/uL (0.2-0.9) 02/16/24 14:15 Eos # (Auto) 0.3 10^3/uL (0.0-0.8) 02/16/24 14:15 Baso # (Auto) 0.1 10^3/uL (0.0-0.1) 02/16/24 14:15 Nucleated RBC % (auto) 0 % 02/16/24 14:15 Nucleated RBCs # 0.0 /100WBC 02/16/24 14:15 Sodium 132 mmol/L (136-145) L 02/16/24 14:15 Potassium 4.6 mmol/L (3.5-5.1) 02/16/24 14:15 Chloride 97 mmol/L (98-107) L 02/16/24 14:15 Carbon Dioxide 25 mmol/L (22-29) 02/16/24 14:15 Anion Gap 14.6 (5-19) 02/16/24 14:15 BUN 13 mg/dL (8-23) 02/16/24 14:15 Creatinine 0.9 mg/dL (0.5-0.9) 02/16/24 14:15 GFR Calculation Not Reportable 02/16/24 14:15 Glucose 91 mg/dL (65-115) 02/16/24 14:15 Calculated Osmolality 274 mOsm/kg (285-295) L 02/16/24 14:15 Calcium 9.5 mg/dL (8.5-10.5) 02/16/24 14:15 Total Bilirubin 0.6 mg/dL (0.15-1.2) 02/16/24 14:15 AST 17 U/L (0-32) 02/16/24 14:15 ALT 13 U/L (0-33) 02/16/24 14:15 Alkaline Phosphatase 70 U/L (35-105) 02/16/24 14:15 Total Protein 6.8 g/dL (6.6-8.7) 02/16/24 14:15 Albumin 4.2 g/dL (3.5-5.2) 02/16/24 14:15 Globulin 2.6 g/dL (1.3-4.6) 02/16/24 14:15 All radiology interpretation(s) finalized by discharge Discharge Plan Discharge Patient Disposition: Home Clinical Impression: Facial nerve palsy Condition: Stable Prescriptions: New carbamazepine 200 mg tablet 200 mg PO BID Qty: 30 0RF No Action nitroglycerin 0.4 mg tablet, sublingual 0.4 mg SUBLINGUAL Q5M PRN (Reason: chest pain) Qty: 25 0RF Rx Instructions: do not exceed 3 doses per episode cholecalciferol (vitamin D3) 25 mcg (1,000 unit) tablet,chewable 5,000 mcg PO DAILY ketoconazole 2 % shampoo 1 applic topical .3xweekly Qty: 120 3RF Rx Instructions: Lather into scalp 3 times weekly. Allow to sit on scalp for 5 minutes before rinsing. mometasone 0.1 % solution 1 applic topical DAILY PRN (Reason: itching) Qty: 60 3RF Rx Instructions: to scalp hydrocortisone 2.5 % cream 1 applic topical DAILY PRN (Reason: skin irritation) Qty: 30 3RF mupirocin 2 % ointment 1 applic topical BID Qty: 15 2RF oxybutynin chloride 5 mg tablet See Rx Instructions .ROUTE .COMPLEX Qty: 270 2RF Dose Instruction: TAKE 1 TABLET BY MOUTH THREE TIMES DAILY Rx Instructions: TAKE 1 TABLET BY MOUTH THREE TIMES DAILY citalopram 10 mg tablet 10 mg PO DAILY Qty: 30 3RF prednisone 20 mg tablet 20 mg PO DAILY Qty: 7 0RF levothyroxine 75 mcg tablet 75 mcg PO DAILY Qty: 90 3RF clopidogrel 75 mg tablet See Rx Instructions .ROUTE .COMPLEX Qty: 90 0RF Dose Instruction: Take 1 tablet by mouth once daily Rx Instructions: Take 1 tablet by mouth once daily simvastatin 20 mg tablet See Rx Instructions .ROUTE .COMPLEX Qty: 90 3RF Dose Instruction: TAKE 1 TABLET BY MOUTH EVERY DAY AT BEDTIME FOR CHOLESTEROL Rx Instructions: TAKE 1 TABLET BY MOUTH EVERY DAY AT BEDTIME FOR CHOLESTEROL metoprolol tartrate 25 mg tablet 12.5 mg PO BID Qty: 90 3RF tramadol 50 mg tablet 50 mg PO TID PRN (Reason: pain) Qty: 60 0RF losartan 50 mg tablet See Rx Instructions .ROUTE .COMPLEX Qty: 90 3RF Dose Instruction: Take 1 tablet by mouth once daily Rx Instructions: Take 1 tablet by mouth once daily aspirin [Aspir-81] 81 mg Tablet,Delayed Release (Dr/Ec) 81 mg PO DAILY Hair Skin And Nails Gummies 1 tab PO BID fluconazole 150 mg tablet 150 mg PO Q3D Qty: 2 0RF Rx Instructions: may repeat second dose 72 hrs after first dose if symptoms persist triamcinolone acetonide 0.1 % cream 1 applic topical BID PRN (Reason: Skin rash) Qty: 80 0RF Discharge Orders: Discharge ED (Routine); Ordered 02/16/24 Ordered By: Preston Louise Referrals: Aung Campbell MD [Primary Care Provider] - Discharge Diet: Usual diet Discharge Activity: Resume usual activity Patient Instructions: Opioid Safety, Pain Management Activity Restrictions/Additional Instructions: Thank you for choosing [facility] for your healthcare needs today. Please realize this is an emergency room and that we are providing you with a medical screening exam and this may not be complete and all inclusive of all the testing and or work up that you may need to determine your ailment or severity of your illness. It is very important that you follow up as instructed or that you return to the Emergency Department should you have concerns or if your condition changes or worsens in any way. You were seen today for facial nerve pain. 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 CT of your head was negative. Your pain had resolved by the time the workup was complete. We did give you prescription for carbamazepine 200 mg twice a day if you have any recurrence of the pain start this medication and continue until you follow-up with your doctor. If you have recurrent episodes of pain and the pain is uncontrollable you can also return to the emergency room. Coding Level of Care Code ED Work From Home for Lala Cruz
[2024-02-16] MEDS: morphine 4 mg/mL SDV 1 mL 2 MG IVP (14:24)
[2024-02-16] MEDS: ondansetron 2 mg/ML SDV 2 mL 4 MG IVP (14:24)
[2024-02-16 14:35] VITALS: BP 159/85; PULSE 50; O2SAT 99
[2024-02-16 14:37] LABS: Basophils # 0.1 10^3/uL (0.0-0.1); Eosinophils # 0.3 10^3/uL (0.0-0.8); Eosinophils % 7.1 %; Hematocrit 41.5 % (36-47); Lymphocytes % 42.7 %; Mean Corpuscular HGB Conc 33.3 g/dL (30-55); Mean Corpuscular Hemoglobin 30.9 pg (27-33); Mean Corpuscular Volume 92.8 fl (85-98); Mean Platelet Volume 9.5 fL (7.4-10.4); Monocytes # 0.4 10^3/uL (0.2-0.9); Neutrophils # 1.91 10^3/uL (1.8-7.7); Nucleated Red Blood Cells % 0 %; Platelet Count 185 10^3/cmm (157-399); Red Blood Count 4.47 10^6/uL (3.85-5.65); Red Cell Distribution Width 13.1 % (12.1-15.1); White Blood Count 4.78 10^3/uL (3.29-11.43)
[2024-02-16 14:48] LABS: Alanine Aminotransferase 13 U/L (0-33); Albumin Level 4.2 g/dL (3.5-5.2); Alkaline Phosphatase 70 U/L (35-105); Anion Gap 14.6 (5-19); Aspartate Amino Transferase 17 U/L (0-32); Blood Urea Nitrogen 13 mg/dL (8-23); Calcium 9.5 mg/dL (8.5-10.5); Carbon Dioxide 25 mmol/L (22-29); Chloride 97 mmol/L (98-107); Creatinine Clr Calc Pharmacy 38.7713; Globulin 2.6 g/dL (1.3-4.6); Glucose 91 mg/dL (65-115); Osmolality Calculated 274 mOsm/kg (285-295); Potassium 4.6 mmol/L (3.5-5.1); Sodium 132 mmol/L (136-145); Total Bilirubin 0.6 mg/dL (0.15-1.2); Total Protein 6.8 g/dL (6.6-8.7)
[2024-02-16 15:34] VITALS: BP 156/107; PULSE 48; O2SAT 98
[2024-02-16 17:08] VITALS: BP 140/71; PULSE 94; O2SAT 96
[2024-02-16 17:11] VITALS: BP 140/71; PULSE 94; RESP 18; TEMP 37.1; O2SAT 96
== END 2024-02-16 17:25 | disposition home or self-care (01) ==
PROVIDERS: Emergency Provider Family Medicine; PCP Family Medicine
DX: G51.0 Bell's palsy (principal); E03.9 Hypothyroidism, unspecified; Z79.890 Hormone replacement therapy
CPT/HCPCS: 70450; 80053; 85025; 93005; 96374; 96375; 99285; J2270; J2405

== ENCOUNTER 2024-03-05 07:47 | Outpatient (CLI) | payer MEDICARE, SELFPAY ==
--- NOTE | 2024-03-05 08:00 | MR_ITS ---
WS: [id number] MRI HEAD WITH CONTRAST TECHNIQUE: Sagittal T1, T2 axial, T2 axial FLAIR, axial susceptibility weighted imaging, axial diffus ion weighted images, and coronal T2 images were obtained. Pre and post-T1 axial and post T1 coronal i mages. ADC and FSPGR images. CLINICAL INFORMATION: Trigeminal neuralgia COMPARISON: CT head 02/16/2024 FINDINGS: No evidence of restricted diffusion to suggest acute ischemia. Ventricular system and basilar cistern s are patent. Advanced small vessel changes. Small vessel changes in the micki. Moderate parenchymal v olume loss. Normal posterior fossa. Normal vascular flow voids at the skull base. No extra-axial flui d collections. No evidence of mass or mass effect. Paranasal sinuses and mastoid air cells are well a erated. A few small punctate foci of hemosiderin in the LEFT cerebellum. Mild symmetric atrophy temporal lobe s and hippocampal formations. Normal optic chiasm and pituitary infundibulum. Normal cavernous sinuse s and Meckel's cave. Proximal 7th and 8th cranial nerves are normal in appearance. No evidence of enh ancing IAC or CP angle mass. Normal trigeminal nerve root entry zones. Tiny lesion in the LEFT aspect of the pituitary likely incidental measuring 2.5 mm No abnormal gadolinium enhancement. Normal dural venous sinuses. MR/MR head wo/w con [id number] IMPRESSION: 1. No evidence of restricted diffusion to suggest acute ischemia. 2. Advanced small vessel changes with moderate parenchymal volume loss. 3. 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 4. Normal trigeminal nerve root entry zones bilaterally. No enhancing lesions. 5. Normal optic chiasm and pituitary infundibulum. 6. Tiny 2.4 mm T2 hyperintense lesion in the LEFT aspect of the pituitary like ly incidental. Recommend correlation with pituitary function studies to exclude microadenoma. 7. No other acute findings.
[2024-03-05] MEDS: gadobenate dimeglumine 20 mL vial IV (08:55)
== END 2024-03-05 07:48 | disposition home or self-care (01) ==
PROVIDERS: PCP Family Medicine; Visit Provider Family Medicine
DX: G50.0 Trigeminal neuralgia (principal); I69.314 Frontal lobe and executive function deficit following cerebral infarction
CPT/HCPCS: 70553; A9577

== ENCOUNTER → 2024-03-21 10:14 | Outpatient (BNVA) | payer MEDICARE, SELFPAY | PROVIDERS: PCP Family Medicine; Visit Provider Family Medicine | DX: E03.9 Hypothyroidism, unspecified (principal); E23.7 Disorder of pituitary gland, unspecified; G50.0 Trigeminal neuralgia | CPT/HCPCS: 82024; 82533; 83003; 84146; 84305; 84439; 84443 ==

== ENCOUNTER 2025-05-23 06:09 | Emergency (ER) | payer MEDICARE, SELFPAY ==
[2025-05-23 06:16] VITALS: BP 175/74; PULSE 58; RESP 18; TEMP 36.6; O2SAT 96; BMI 24.9
--- OUTSIDE RECORDS SUMMARY | 2025-05-23 06:16 | XMS_ITS | Patient Health Record ---
Author Organization [facility] Address [address] [place], [place] [id number] Care Team Providers Care Gravel Roofer Name Role Phone Shannan KRAFT, Aung Primary Care Provider Fabiana Mariee MD, [facility] [phone] Reason For Referral No Information Medications Medication SIG (Take, Route, Frequency, Duration) Notes Start Date End Date Status Acidophilus - with pectin 1 cap or ally as directed Active meloxicam 15 mg 1 tab po orally Q24H prn pain; take with food Active losartan 50 mg 1 tab orally once a day Active Metoprolol Tartrate 25 mg 1/2 tab orally 2 times a day Active simvastatin 20 mg 1/2 tab orally once a day (at bedtime) Active acetaminophen-diphenhydrami ne 500 mg-25 mg 1 cap orally once a day (at bedtime) Active Plavix 75 mg 1 tab orally once a day Active aspirin 325 mg 1 tab orally as directed Active oxyBUTYnin 5 mg 1 tab orally 2 times a day Active Social History Tobacco Use: Social History Observation Description Date Details (start date - stop date) Never Smoker NA - NA Tobacco use: Question Answer Notes : nonsmoker Problems Problem Type SNOMED Code ICD Code Onset Dates Problem Status W/U Status Risk Notes Problem Shoulder joint pain (917843192) Pain in left shoulder (M25.512) Active confirmed Problem Acquired spondylolisthesis (257671289) Spondylolisthe sis, cervical region (M43.12) Active confirmed Problem Cervical spondylosis without myelopathy (270715977) Spondylosis without myelopathy or radiculopathy, cervical region (M47.812) Active confirmed Problem Cervicalgia (64961474) Cervicalgia (M54.2) Active confirmed Problem Long-term current use of drug therapy (049402329) Other senior care (current) drug therapy (Z79.899) Active confirmed Plan Of Treatment No Information Insurance Providers Payer Name Payer Address Payer Phone Subscriber Number Group Number Insured Name Patient Relationship to Insured Coverage Start Date Coverage End Date [employer] [address] [address] [place] [address] [id number] Kandis Landin Self - patient is the insured Medical (General) History Medical History History ICD Code Coronary artery disease Hypercholesterolemia CVA at age 35 years Thyroid nodule Mini strokes x 2 Neck pain Right knee pain Surgical History Surgery Date(Month/Year) Tonsillectomy Varicose vein stripped Left rotator cuff repair 03/25/2004 Bladder prolapse repair x 2 C5-6, C6-7 ACDF 08/22/2010 Stent placement x 3 2009 Hospitalization History Reason Date(Month/Year) TIA/CVA 06/2015 [place] 2009
[2025-05-23 06:22] VITALS: BP 175/74; PULSE 52; RESP 18; O2SAT 94
--- NOTE | 2025-05-23 06:44 | CTR_ITS ---
PROCEDURE INFORMATION: Exam: CT Head Without Contrast Exam date and time: 05/23/2025 6:51 AM Age: 89 years old Clinical indication: Pain; Headache; C/O MARTINEZ with hypertension. History of pituitary lesion. ; Additional info: Headache, facial pain TECHNIQUE: Imaging protocol: Computed tomography of the head without contrast. Radiation optimization: All CT scans at this facility use at least one of these dose optimization techniques: automated exposure control; mA and/or kV adjustment per patient size (includes targeted exams where dose is matched to clinical indication); or iterative reconstruction. COMPARISON: MR head wo/w con [id number] 03/05/2024 8:19 AM RADIATION DOSE METRICS: Total DLP (mGy-cm): 1056.43 FINDINGS: Brain: No hemorrhage. Periventricular white matter lucency represents atherosclerotic encephalopathic changes. No mass effect. Cerebral ventricles: No ventriculomegaly. Ventricular prominence disproportionate to the degree of atrophy observed. Paranasal sinuses: Visualized sinuses are unremarkable. No fluid levels. Mastoid air cells: Visualized mastoid air cells are well aerated. Bones: Unremarkable. Soft tissues: Unremarkable. CT/CT head wo con* [id number] IMPRESSION: No acute intracranial abnormality.
--- NOTE | 2025-05-23 06:47 | W.ED.HA ---
Documented by User: Tc Hough DO 05/23/25 19:18 HPI - Headache General: Chief Complaint: Headache Stated Complaint: Headache Time Seen by Provider: 05/23/25 06:32 History of Present Illness: Patient is an 89-year-old female presenting with acute onset of sharp, lightning-like facial pain extending from her left eye down to her jaw. She describes the pain as very sharp and occurring every few seconds. The patient reports having experienced similar episodes in the past, with the last occurrence being approximately two years ago, though she cannot recall the exact timeframe. The pain is not associated with visual changes, nausea, hearing changes, drooling, or rash. She denies neck pain. The patient reports that the pain was present throughout the night, interfering with sleep. Previous treatment included carbamazepine and hydrocodone, which reportedly made her really sick. She subsequently received prednisone and oxycodone from Dr. Carlson (when Dr. Campbell was on vacation), which provided better relief. The daughter notes that prolonged oxycodone use has previously caused oral sores and yeast infections in the patient, for which Dr. Campbell has prescribed prophylactic fluconazole. Related Data Home Medications ?Medication ?Instructions ?Recorded ?Confirmed aspirin 81 mg tablet,delayed 81 mg PO DAILY 05/23/25 05/23/25 release clopidogrel 75 mg tablet 75 mg PO QAM 05/23/25 05/23/25 losartan 50 mg tablet 50 mg PO QAM 05/23/25 05/23/25 oxybutynin chloride 5 mg tablet 5 mg PO TID 05/23/25 05/23/25 simvastatin 20 mg tablet 20 mg PO BEDTIME cholesterol 05/23/25 05/23/25 Previous Rx's ?Medication ?Instructions ?Recorded levothyroxine 75 mcg tablet 75 mcg PO DAILY #90 tabs 11/07/24 metoprolol tartrate 25 mg tablet 12.5 mg (1/2 x 25 mg) PO BID #90 11/07/24 tabs methylprednisolone 4 mg tablets in See Rx Instructions PO .COMPLEX 05/23/25 a dose pack (Medrol (Andrew)) #21 ea Allergies Allergy/AdvReac Type Severity Reaction Status Date / Time No Known Allergies Allergy Verified 04/30/25 17:39 [facility] ED [facility]: Medical History Hypothyroidism Osteoarthritis Coronary artery disease Surgical History History of knee replacement History of heart artery stent H/O rotator cuff surgery History of hysterectomy History of tonsillectomy History of bladder suspension procedure Family History Other CAD (coronary artery disease) Social History Smoking and tobacco/nicotine status: never used tobacco/nicotine Quit status (tobacco/nicotine): has quit using Year quit tobacco: 1970 Former quit date comment: Smoked for 19 years - about 10 pack years Alcohol intake: current Alcohol intake frequency: holidays/special occasions only Substance/Drug Use: never Physical Exam Const: COMMON NORMALS: no acute distress and alert GENERAL APPEARANCE: cooperative; not ill appearing and not frail appearing HENMT: COMMON NORMALS: normocephalic, atraumatic, Normal external nose present and moist oral mucous membranes HEAD & SCALP: normocephalic and atraumatic FACE & SINUS: normal facial exam, face symmetric and Facial tenderness on exam of face and sinuses on the left (on Tinel's testing over trigeminal nerve) NOSE: Normal external nose present Eye: COMMON NORMALS: Equal, round and reactive pupils present, EOMs intact bilaterally and conjunctivae normal PERIORBITAL: periorbital findings normal CONJUNCTIVA: Yes conjunctivae normal PUPIL: Yes Equal, round and reactive pupils present Neck/C-Spine: COMMON NORMALS: full ROM CERVICAL SPINE: Yes cervical ROM normal and No Cervical spine tenderness Chest: CHEST: Yes Symmetrical chest wall rise Resp: COMMON NORMALS: No use of accessory muscles and clear to auscultation bilaterally AUSCULTATION: clear to auscultation bilaterally Cardio: COMMON NORMALS: regular rate and regular rhythm RATE: regular rate RHYTHM: regular rhythm Neuro: KELLI COMA SCALE: document GCS findings [place] coma scale eye opening: Spontaneous [place] coma scale verbal response: Orientated [place] coma scale motor response: Obey commands [place] coma scale total score: 15 SENSORIUM/ORIENTATION: Yes alert COORDINATION/BALANCE: pijopz-of-stel test normal SPEECH: speech normal COORDINATION: [id number]-[id number]-egqy test normal Skin: COMMON NORMALS: no rashes or lesions noted GENERAL SKIN EXAM: no rashes or lesions noted Course Vital Signs: Vital signs: Vital Signs Temperature 98 F 05/23/25 06:16 Pulse Rate 51 L 05/23/25 09:12 Respiratory Rate 16 05/23/25 09:12 Blood Pressure 154/68 05/23/25 09:12 Pulse Oximetry 98 05/23/25 09:12 Oxygen Delivery Me thod Room Air 05/23/25 08:05 MDM - Headache Medical Decision Making Trigeminal nerve tenderness on Tinel's testing. No rash. Patient is given Solu-Medrol, Toradol, morphine. Head CT, and laboratory pending, as temporal arteritis is in the differential, as is tumor, etc. patient was checked out to the oncoming physician at shift change Care assumed at change of shift. Laboratory tests unremarkable. CT negative patient states she is feeling much better she had a similar episode several years ago that resolved she was on carbamazepine for a time but had adverse reaction so it was stopped she is several years since she has not had another episode. Will discharge home on a short course of steroid taper and have her follow-up with her primary care doctor return if she has visual changes or recurrence of symptoms Lab Data 05/23/25 06:33 05/23/25 06:[address] 05/23/25 06:44 IMPRESSION: No acute intracranial abnormality. Laboratory Results WBC 3.91 10^3/uL (3.29-11.43) 05/23/25 06:33 RBC 3.93 10^6/uL (3.85-5.65) 05/23/25 06:33 Hgb 12.80 g/dL (11.27-16.99) 05/23/25 06:33 Hct 37.7 % (36-47) 05/23/25 06:33 MCV 95.9 fl (85-98) 05/23/25 06:33 MCH 32.6 pg (27-33) 05/23/25 06:33 MCHC 34.0 g/dL (30-55) 05/23/25 06:33 RDW 13.2 % (12.1-15.1) 05/23/25 06:33 Plt Count 157 10^3/cmm (157-399) 05/23/25 06:33 MPV 9.3 fL (7.4-10.4) 05/23/25 06:33 Neut % (Auto) 46.9 % 05/23/25 06:33 Lymph % (Auto) 36.1 % 05/23/25 06:33 [place] % (Auto) 12.3 % 05/23/25 06:33 Eos % (Auto) 3.6 % 05/23/25 06:33 Baso % (Auto) 0.8 % 05/23/25 06:33 Neut # (Auto) 1.84 10^3/uL (1.8-7.7) 05/23/25 06:33 Lymph # (Auto) 1.4 10^3/uL (0.8-4.8) 05/23/25 06:33 [place] # (Auto) 0.5 10^3/uL (0.2-0.9) 05/23/25 06:33 Eos # (Auto) 0.1 10^3/uL (0.0-0.8) 05/23/25 06:33 Baso # (Auto) 0.0 10^3/uL (0.0-0.1) 05/23/25 06:33 Nucleated RBC % (auto) 0 % 05/23/25 06:33 Nucleated RBCs # 0.0 /100WBC 05/23/25 06:33 ESR 13 mm/hr (0-15) 05/23/25 06:33 Sodium 132 mmol/L (136-145) L 05/23/25 06:33 Potassium 4.5 mmol/L (3.5-5.1) 05/23/25 06:33 Chloride 99 mmol/L (98-107) 05/23/25 06:33 Carbon Dioxide 23 mmol/L (22-29) 05/23/25 06:33 Anion Gap 14.5 (5-19) 05/23/25 06:33 BUN 10 mg/dL (8-23) 05/23/25 06:33 Creatinine 0.7 mg/dL (0.5-0.9) 05/23/25 06:33 GFR Calculation Not Reportable 05/23/25 06:33 Glucose 100 mg/dL (65-115) 05/23/25 06:33 Calculated Osmolality 273 mOsm/kg (285-295) L 05/23/25 06:33 Calcium 9.2 mg/dL (8.5-10.5) 05/23/25 06:33 Total Bilirubin 0.5 mg/dL (0.15-1.2) 05/23/25 06:33 AST 17 U/L (0-32) 05/23/25 06:33 ALT 12 U/L (0-33) 05/23/25 06:33 Alkaline Phosphatase 73 U/L (35-105) 05/23/25 06:33 C-Reactive Protein 27.8 mg/L (0.0-4.9) H 05/23/25 06:33 Total Protein 6.6 g/dL (6.6-8.7) 05/23/25 06:33 Albumin 4.1 g/dL (3.5-5.2) 05/23/25 06:33 Globulin 2.5 g/dL (1.3-4.6) 05/23/25 06:33 Procalcitonin 0.04 ng/mL (0-0.5) 05/23/25 06:33 Discharge Plan Discharge Patient Disposition: Home Clinical Impression: Left-sided trigeminal neuralgia Condition: Stable Prescriptions: New methylprednisolone [Medrol (Andrew)] 4 mg tablets,dose pack See Rx Instructions .ROUTE .COMPLEX Qty: 21 0RF Rx Instructions: orally per package directions No Action levothyroxine 75 mcg tablet 75 mcg PO DAILY Qty: 90 3RF metoprolol tartrate 25 mg tablet 12.5 mg PO BID Qty: 90 3RF aspirin [Aspir-81] 81 mg Tablet,Delayed Release (Dr/Ec) 81 mg PO DAILY losartan 50 mg tablet 50 mg PO QAM clopidogrel 75 mg tablet 75 mg PO QAM simvastatin 20 mg tablet 20 mg PO BEDTIME oxybutynin chloride 5 mg tablet 5 mg PO TID Discharge Orders: Discharge ED (Routine); Ordered 05/23/25 Ordered By: Preston Louise Referrals: Aung Campbell MD [Primary Care Provider, Family Practice] Discharge Diet: Usual diet Discharge Activity: Resume usual activity Patient Instructions: Opioid Safety, Pain Management, Patient Portal & Camila Instructions Activity Restrictions/Additional Instructions: Thank you for choosing [facility] for your healthcare needs today. It is very important that you follow up as instructed or that you return to the Emergency Department should you have concerns or if your condition changes or worsens in any way. You were seen in the emergency room with complaints of facial pain. Your laboratory tests are unremarkable. Sed rate is minimally elevated. Recommend a short course of steroids and follow-up with your primary care doctor within the next week. Recurrence or worsening of symptoms or change in vision return to the emergency room. Print Language: Slovenian Sign Out Sign Out Data: Patient Sign Out occurred on 05/23/25 at 07:21. Patient's care was discussed, and care was transferred from Tc Hough DO to Preston Louise DO. Coding Level of Care Code ED Mechanical Systems Engineer for Chg Fwd Documented by User: Preston Louise DO 05/23/25 09:05 HPI - Headache General: Chief Complaint: Headache Stated Complaint: Headache Time Seen by Provider: 05/23/25 06:32 Related Data Home Medications ?Medication ?Instructions ?Recorded ?Confirmed aspirin 81 mg tablet,delayed 81 mg PO DAILY 05/23/25 05/23/25 release clopidogrel 75 mg tablet 75 mg PO QAM 05/23/25 05/23/25 losartan 50 mg tablet 50 mg PO QAM 05/23/25 05/23/25 oxybutynin chloride 5 mg tablet 5 mg PO TID 05/23/25 05/23/25 simvastatin 20 mg tablet 20 mg PO BEDTIME cholesterol 05/23/25 05/23/25 Previous Rx's ?Medication ?Instructions ?Recorded levothyroxine 75 mcg tablet 75 mcg PO DAILY #90 tabs 11/07/24 metoprolol tartrate 25 mg tablet 12.5 mg (1/2 x 25 mg) PO BID #90 11/07/24 tabs methylprednisolone 4 mg tablets in See Rx Instructions PO .COMPLEX 05/23/25 a dose pack (Medrol (Andrew)) #21 ea Allergies Allergy/AdvReac Type Severity Reaction Status Date / Time No Known Allergies Allergy Verified 04/30/25 17:39 [facility] ED PFSH: Medical History Hypothyroidism Osteoarthritis Coronary artery disease Surgical History History of knee replacement History of heart artery stent H/O rotator cuff surgery History of hysterectomy History of tonsillectomy History of bladder suspension procedure Family History Other CAD (coronary artery disease) Social History Smoking and tobacco/nicotine status: never used tobacco/nicotine Quit status (tobacco/nicotine): has quit using Year quit tobacco: 1970 Former quit date comment: Smoked for 19 years - about 10 pack years Alcohol intake: current Alcohol intake frequency: holidays/special occasions only Substance/Drug Use: never Course Vital Signs: Vital signs: Vital Signs Temperature 98 F 05/23/25 06:16 Pulse Rate 51 L 05/23/25 09:12 Respiratory Rate 16 05/23/25 09:12 Blood Pressure 154/68 05/23/25 09:12 Pulse Oximetry 98 05/23/25 09:12 Oxygen Delivery Me thod Room Air 05/23/25 08:05 MDM - Headache Medical Decision Making Trigeminal nerve tenderness on Tinel's testing. No rash. Patient is given Solu-Medrol, Toradol, morphine. Head CT, and laboratory pending, as temporal arteritis is in the differential, as is tumor, etc. Care assumed at change of shift. Laboratory tests unremarkable. CT negative patient states she is feeling much better she had a similar episode several years ago that resolved she was on carbamazepine for a time but had adverse reaction so it was stopped she is several years since she has not had another episode. Will discharge home on a short course of steroid taper and have her follow-up with her primary care doctor return if she has visual changes or recurrence of symptoms Differential Diagnosis Likely migraine (, Temporal arteritis), tension headache, subarachnoid hemorrhage, headache and meningitis Medical Records I reviewed the patient's medical records. Lab Data I reviewed the patient's lab results. 05/23/25 06:33 05/23/25 06:[address] 05/23/25 06:44 IMPRESSION: No acute intracranial abnormality. Laboratory Results WBC 3.91 10^3/uL (3.29-11.43) 05/23/25 06:33 RBC 3.93 10^6/uL (3.85-5.65) 05/23/25 06:33 Hgb 12.80 g/dL (11.27-16.99) 05/23/25 06:33 Hct 37.7 % (36-47) 05/23/25 06:33 MCV 95.9 fl (85-98) 05/23/25 06:33 MCH 32.6 pg (27-33) 05/23/25 06:33 MCHC 34.0 g/dL (30-55) 05/23/25 06:33 RDW 13.2 % (12.1-15.1) 05/23/25 06:33 Plt Count 157 10^3/cmm (157-399) 05/23/25 06:33 MPV 9.3 fL (7.4-10.4) 05/23/25 06:33 Neut % (Auto) 46.9 % 05/23/25 06:33 Lymph % (Auto) 36.1 % 05/23/25 06:33 [place] % (Auto) 12.3 % 05/23/25 06:33 Eos % (Auto) 3.6 % 05/23/25 06:33 Baso % (Auto) 0.8 % 05/23/25 06:33 Neut # (Auto) 1.84 10^3/uL (1.8-7.7) 05/23/25 06:33 Lymph # (Auto) 1.4 10^3/uL (0.8-4.8) 05/23/25 06:33 [place] # (Auto) 0.5 10^3/uL (0.2-0.9) 05/23/25 06:33 Eos # (Auto) 0.1 10^3/uL (0.0-0.8) 05/23/25 06:33 Baso # (Auto) 0.0 10^3/uL (0.0-0.1) 05/23/25 06:33 Nucleated RBC % (auto) 0 % 05/23/25 06:33 Nucleated RBCs # 0.0 /100WBC 05/23/25 06:33 ESR 13 mm/hr (0-15) 05/23/25 06:33 Sodium 132 mmol/L (136-145) L 05/23/25 06:33 Potassium 4.5 mmol/L (3.5-5.1) 05/23/25 06:33 Chloride 99 mmol/L (98-107) 05/23/25 06:33 Carbon Dioxide 23 mmol/L (22-29) 05/23/25 06:33 Anion Gap 14.5 (5-19) 05/23/25 06:33 BUN 10 mg/dL (8-23) 05/23/25 06:33 Creatinine 0.7 mg/dL (0.5-0.9) 05/23/25 06:33 GFR Calculation Not Reportable 05/23/25 06:33 Glucose 100 mg/dL (65-115) 05/23/25 06:33 Calculated Osmolality 273 mOsm/kg (285-295) L 05/23/25 06:33 Calcium 9.2 mg/dL (8.5-10.5) 05/23/25 06:33 Total Bilirubin 0.5 mg/dL (0.15-1.2) 05/23/25 06:33 AST 17 U/L (0-32) 05/23/25 06:33 ALT 12 U/L (0-33) 05/23/25 06:33 Alkaline Phosphatase 73 U/L (35-105) 05/23/25 06:33 C-Reactive Protein 27.8 mg/L (0.0-4.9) H 05/23/25 06:33 Total Protein 6.6 g/dL (6.6-8.7) 05/23/25 06:33 Albumin 4.1 g/dL (3.5-5.2) 05/23/25 06:33 Globulin 2.5 g/dL (1.3-4.6) 05/23/25 06:33 Procalcitonin 0.04 ng/mL (0-0.5) 05/23/25 06:33 All radiology interpretation(s) finalized by discharge Discharge Plan Discharge Patient Disposition: Home Clinical Impression: Left-sided trigeminal neuralgia Condition: Stable Prescriptions: New methylprednisolone [Medrol (Andrew)] 4 mg tablets,dose pack See Rx Instructions .ROUTE .COMPLEX Qty: 21 0RF Rx Instructions: orally per package directions No Action levothyroxine 75 mcg tablet 75 mcg PO DAILY Qty: 90 3RF metoprolol tartrate 25 mg tablet 12.5 mg PO BID Qty: 90 3RF aspirin [Aspir-81] 81 mg Tablet,Delayed Release (Dr/Ec) 81 mg PO DAILY losartan 50 mg tablet 50 mg PO QAM clopidogrel 75 mg tablet 75 mg PO QAM simvastatin 20 mg tablet 20 mg PO BEDTIME oxybutynin chloride 5 mg tablet 5 mg PO TID Discharge Orders: Discharge ED (Routine); Ordered 05/23/25 Ordered By: Preston Louise Referrals: Aung Campbell MD [Primary Care Provider, Family Practice] Discharge Diet: Usual diet Discharge Activity: Resume usual activity Patient Instructions: Opioid Safety, Pain Management, Patient Portal & Camila Instructions Activity Restrictions/Additional Instructions: [facility]. It is very important that you follow up as instructed or that you return to the Emergency Department should you have concerns or if your condition changes or worsens in any way. You were seen in the emergency room with complaints of facial pain. Your laboratory tests are unremarkable. Sed rate is minimally elevated. Recommend a short course of steroids and follow-up with your primary care doctor within the next week. Recurrence or worsening of symptoms or change in vision return to the emergency room. Print Language: Slovenian Sign Out Sign Out Data: Patient Sign Out occurred on 05/23/25 at 07:21. Patient's care was discussed, and care was transferred from Tc Hough DO to Preston Louise DO. Coding Level of Care Code ED Mechanical Systems Engineer for Lala Cruz
[2025-05-23 07:01] LABS: Hematocrit 37.7 % (36-47); Hemoglobin 12.80 g/dL (11.27-16.99); Mean Corpuscular HGB Conc 34.0 g/dL (30-55); Mean Corpuscular Hemoglobin 32.6 pg (27-33); Mean Corpuscular Volume 95.9 fl (85-98); Nucleated Red Blood Cells % 0 %; Platelet Count 157 10^3/cmm (157-399); Red Blood Count 3.93 10^6/uL (3.85-5.65); White Blood Count 3.91 10^3/uL (3.29-11.43)
[2025-05-23 07:08] LABS: Alanine Aminotransferase 12 U/L (0-33); Albumin Level 4.1 g/dL (3.5-5.2); Alkaline Phosphatase 73 U/L (35-105); Anion Gap 14.5 (5-19); Aspartate Amino Transferase 17 U/L (0-32); Blood Urea Nitrogen 10 mg/dL (8-23); Calcium 9.2 mg/dL (8.5-10.5); Carbon Dioxide 23 mmol/L (22-29); Chloride 99 mmol/L (98-107); Creatinine Clr Calc Pharmacy 44.5003; Globulin 2.5 g/dL (1.3-4.6); Glucose 100 mg/dL (65-115); Osmolality Calculated 273 mOsm/kg (285-295); Potassium 4.5 mmol/L (3.5-5.1); Sodium 132 mmol/L (136-145); Total Protein 6.6 g/dL (6.6-8.7)
[2025-05-23] MEDS: morphine 4 mg/mL SDV 1 mL IVP (07:13)
[2025-05-23] MEDS: methylPREDNISolone sod succ 125 mg/2 mL INJ 80 MG IVP (07:13)
[2025-05-23 07:15] LABS: Procalcitonin 0.04 ng/mL (0-0.5)
[2025-05-23 07:45] VITALS: BP 162/74; O2SAT 95
[2025-05-23 08:05] VITALS: BP 150/66; O2SAT 98
[2025-05-23 09:12] VITALS: BP 154/68; PULSE 51; RESP 16; O2SAT 98
== END 2025-05-23 09:18 | disposition home or self-care (01) ==
PROVIDERS: Emergency Medicine; Emergency Provider Family Medicine; PCP Family Medicine
DX: G50.0 Trigeminal neuralgia (principal)
CPT/HCPCS: 36415; 70450; 80053; 84145; 85025; 85651; 86140; 96374; 96375; 99285; J1885; J2270; J2919

== ENCOUNTER 2025-05-29 09:42 | Outpatient (CLI) | payer MEDICARE, SELFPAY ==
--- NOTE | 2025-05-29 09:52 | XR_ITS ---
WS: [id number] Exam: XR lumbar spine 2-3V* [id number] Date/Time of Exam: 05/29/2025 9:52 AM Reason For Exam: Low back pain DLP: No acute fracture. Old low-grade mild compression fracture of the upper plate of L3 without significant loss of vertebral height. Marked facet arthropathy at all levels. Grade 1 degenerative anterolisthesis of L4 on L5 and L5 on S1 stable in appearance since prior study. Mild dextroscoliosis. Marked osteopenia. Increased lumbar lordosis. Atherosclerosis of the abdominal aorta and several branches. XR/XR lumbar spine 2-3V* [id number] IMPRESSION: 1. No acute fracture. Old mild insufficiency compression of the upper plate of L3 without loss of vertebral height. 2. Degenerative anterolisthesis of L4 on L5 and L5 on S1 stable in appearance. 4. Marked facet arthropathy at all levels. Osteopenia, slight dextroscoliosis.
== END 2025-05-29 09:43 | disposition home or self-care (01) ==
PROVIDERS: PCP Family Medicine; Visit Provider Family Medicine
DX: M47.896 Other spondylosis, lumbar region (principal); E03.9 Hypothyroidism, unspecified; R30.0 Dysuria; M48.56XD Collapsed vertebra, not elsewhere classified, lumbar region, subsequent encounter for fracture with routine healing; M43.16 Spondylolisthesis, lumbar region; M43.17 Spondylolisthesis, lumbosacral region; M85.80 Other specified disorders of bone density and structure, unspecified site; M41.86 Other forms of scoliosis, lumbar region; I70.0 Atherosclerosis of aorta; I70.90 Unspecified atherosclerosis
CPT/HCPCS: 72100; 81000; 84439; 84443; 87086

== ENCOUNTER 2025-09-09 12:01 | Emergency (ER) | payer MEDICARE, SELFPAY ==
[2025-09-09 12:15] VITALS: BP 136/73; PULSE 48; RESP 17; TEMP 36.4; O2SAT 100; BMI 25.7
--- NOTE | 2025-09-09 12:18 | ECG_ITS ---
[facility] 2025-[facility]-09 Pat Name: Kandis Landin Department: Room: Gender: Female Zoning Technician: : 1935 Requested By: Josiah Sheldon Order Number: [id number] Carlo MD: Emil Stevens M.D. Measurements Intervals [place] Rate: 47 P: 67 NC: 230 QRS: -23 QRSD: 75 T: 56 QT: 498 QTc: 445 Interpretive Statements SINUS BRADYCARDIA WITH FIRST DEGREE AV BLOCK BORDERLINE LEFT AXIS DEVIATION [QRS AXIS < -20] LOW QRS VOLTAGE IN PRECORDIAL LEADS [QRS DEFLECTION < 1.0 mV IN CHEST LEADS] PATTERN CONSISTENT WITH PULMONARY DISEASE Compared to ECG 02/16/2024 14:17:20 First degree AV block now present Low QRS voltage now present Left ventricular hypertrophy no longer present ST (T wave) deviation no longer present Electronically Signed On 09-10-2025 17:29:14 NURSE OBGYN by Emil Stevens M.D. [email or web address]
--- NOTE | 2025-09-09 12:28 | XR_ITS ---
WS: [id number] XR chest 1V portable [id number] REASON FOR EXAM: sob FINDINGS: Moderate tortuosity and ectasia of the ascending and descending thoracic aorta. Cardiomegaly. Calcified granulomatous disease bilaterally. No acute pulmonary parenchymal or pleural abnormality. Moderate degenerative spondylosis in the thoracic spine. Severe osteoarthritis of both shoulder joints with right subcoracoid bursal loose bodies. Previous rotator cuff tendon repair on the right. XR/XR chest 1V portable [id number] IMPRESSION: Cardiomegaly with no acute abnormality.
--- NOTE | 2025-09-09 12:29 | ED_ITS ---
HPI - Recheck/Abnormal Lab/Rx 2 General: Chief Complaint: Recheck/Abnormal Lab/Rx Stated Complaint: abnormal lab sent by Dr Campbell Time Seen by Provider: 09/09/25 12:24 Source: patient Mode of arrival: ambulatory Limitations: no limitations History of Present Illness: 89-year-old female states that she been having pain in her left shoulder blade over the last few days. States been a very sharp pain states she has had some mild dyspnea as well pains worse with deep inspirations. She denies any fever she denies any chest pain. She denies any shortness of breath currently at rest. Denies any injuries Related Data Home Medications ?Medication ?Instructions ?Recorded ?Confirmed aspirin 81 mg tablet,delayed 81 mg PO DAILY 05/23/25 1 11/10/24 release Previous Rx's ?Medication ?Instructions ?Recorded oxycodone-acetaminophen 5 mg-325 1 tab PO Q6H PRN pain 1 month #30 05/29/25 mg tablet (Percocet) tabs clopidogrel 75 mg tablet See Rx Instructions .Route 1 11/08/24 .COMPLEX #90 tabs levothyroxine 75 mcg tablet 75 mcg PO DAILY #90 tabs 1 11/08/24 losartan 50 mg tablet See Rx Instructions .Route 1 11/08/24 .COMPLEX #90 tabs metoprolol tartrate 25 mg tablet 12.5 mg (1/2 x 25 mg) PO BID #90 09/07/25 tabs oxybutynin chloride 5 mg tablet See Rx Instructions .R oute 09/07/25 .COMPLEX #270 tabs simvastatin 20 mg tablet See Rx Instructions .Route 1 11/08/24 .COMPLEX #90 tabs Allergies Allergy/AdvReac Type Severity Reaction Status Date / Time No Known Allergies Allergy Verified 07/27/25 16:01 Review of Systems 2 Resp: Reports: dyspnea PFSH ED 2 PFSH: Medical History Hypothyroidism Osteoarthritis Coronary artery disease Surgical History History of knee replacement History of heart artery stent H/O rotator cuff surgery History of hysterectomy History of tonsillectomy History of bladder suspension procedure Family History Other CAD (coronary artery disease) Social History Smoking and tobacco/nicotine status: never used tobacco/nicotine Quit status (tobacco/nicotine): has quit using Year quit tobacco: 1970 Former quit date comment: Smoked for 19 years - about 10 pack years Alcohol intake: current Alcohol intake frequency: holidays/special occasions only Substance/Drug Use: never Physical Exam 2 Const: COMMON NORMALS: patient oriented x3 HENMT: COMMON NORMALS: normocephalic and atraumatic HEAD & SCALP: n ormocephalic and atraumatic Eye: COMMON NORMALS: Equal, round and reactive pupils present and EOMs intact bilaterally PUPIL: Yes Equal, round and reactive pupils present Neck/C-Spine: COMMON NORMALS: full ROM and supple Chest: COMMONS NORMALS: normal inspection of the chest and normal palpation of entire chest wall Resp: COMMON NORMALS: normal respiratory effort, No retractions, No use of accessory muscles and clear to auscultation bilaterally AUSCULTATION: clear to auscultation bilaterally Cardio: COMMON NORMALS: regular rhythm and No murmurs present (Cardio) R ATE: bradycardic RHYTHM: regular rhythm GI: COMMON NORMALS: Normal to inspection, nondistended, normoactive bowel sounds present, Soft to palpation, non-tender and no masses PALPATION: Yes Soft to palpation Extremity: COMMON NORMALS: normal to inspection and full ROM Neuro: COMMON NORMALS: patient oriented x3, moves all extremities and no focal motor deficits Psych: COMMON NORMALS: mental status grossly normal, Normal thought process present and cooperative THOUGHT PROCESS: Normal thought process present Skin: COMMON NORMALS: no rashes or lesions noted and no wounds GENERAL SKIN EXAM: no rashes or lesions noted Course 2 Vital Signs: Vital signs: Vital Signs Temperature 97.5 F L 09/09/25 12:15 Pulse Rate 48 L 09/09/25 12:15 Respiratory Rate 17 09/09/25 12:15 Blood Pressure 136/73 09/09/25 12:15 Pulse Oximetry 100 09/09/25 12:15 Oxygen Delivery Me thod Room Air 09/09/25 12:15 MDM - Recheck/Abnormal Lab/Rx Medical Decision Making Patient presents for upper back pain with some mild dyspnea differential include pulm emboli, pneumonia, pneumothorax, muscle skeletal pain. Patient's chest x- ray here showed no acute abnormalities was interpreted by me. Labs showed no significant abnormality age-adjusted D-dimer here is negative no signs of pulmonary emboli. Her troponin is negative as well no chest pain no signs of ACS likely muscular pain she is stable for discharge she is follow-up with PCP and return if worsening she understands agrees to plan. EKG interpreted by me at 1221 sinus bradycardia heart rate [address] elevation QRS 75 QTc 463 Medical Records I reviewed the patient's medical records. Lab Data I reviewed the patient's lab results. 09/09/25 12:36 09/09/25 12:36 Radiology Impressions Chest X-Ray 09/09/25 12:28 IMPRESSION: Cardiomegaly with no acute abnormality. Laboratory Results WBC 3.61 10^3/uL (3.29-11.43) 09/09/25 12:36 RBC 4.14 10^6/uL (3.85-5.65) 09/09/25 12:36 Hgb 13.80 g/dL (11.27-16.99) 09/09/25 12:36 Hct 40.5 % (36-47) 09/09/25 12:36 MCV 97.8 fl (85-98) 09/09/25 12:36 MCH 33.3 pg (27-33) H 09/09/25 12:36 MCHC 34.1 g/dL (30-55) 09/09/25 12:36 RDW 14.5 % (12.1-15.1) 09/09/25 12:36 Plt Count 210 10^3/cmm (157-399) 09/09/25 12:36 MPV 8.8 fL (7.4-10.4) 09/09/25 12:36 Neut % (Auto) 46.0 % 09/09/25 12:36 Lymph % (Auto) 39.1 % 09/09/25 12:36 [place] % (Auto) 9.7 % 09/09/25 12:36 Eos % (Auto) 4.4 % 09/09/25 12:36 Baso % (Auto) 0.8 % 09/09/25 12:36 Neut # (Auto) 1.66 10^3/uL (1.8-7.7) L 09/09/25 12:36 Lymph # (Auto) 1.4 10^3/uL (0.8-4.8) 09/09/25 12:36 [place] # (Auto) 0.4 10^3/uL (0.2-0.9) 09/09/25 12:36 Eos # (Auto) 0.2 10^3/uL (0.0-0.8) 09/09/25 12:36 Baso # (Auto) 0.0 10^3/uL (0.0-0.1) 09/09/25 12:36 Nucleated RBC % (auto) 0 % 09/09/25 12:36 Nucleated RBCs # 0.0 /100WBC 09/09/25 12:36 PT 13.10 SECONDS (12.1-14.9) 09/09/25 12:36 INR 0.93 (0.8-1.2) 09/09/25 12:36 D-Dimer 0.60 ug/mLFEU (0-0.59) H 09/09/25 12:36 Sodium 136 mmol/L (136-145) 09/09/25 12:36 Potassium 4.5 mmol/L (3.5-5.1) 09/09/25 12:36 Chloride 99 mmol/L (98-107) 09/09/25 12:36 Carbon Dioxide 26 mmol/L (22-29) 09/09/25 12:36 Anion Gap 15.5 (5-19) 09/09/25 12:36 BUN 12 mg/dL (8-23) 09/09/25 12:36 Creatinine 0.8 mg/dL (0.5-0.9) 09/09/25 12:36 GFR Calculation Not Reportable 09/09/25 12:36 Glucose 94 mg/dL (65-115) 09/09/25 12:36 Calculated Osmolality 282 mOsm/kg (285-295) L 09/09/25 12:36 Calcium 9.3 mg/dL (8.5-10.5) 09/09/25 12:36 Total Bilirubin 0.4 mg/dL (0.15-1.2) 09/09/25 12:36 AST 18 U/L (0-32) 09/09/25 12:36 ALT 10 U/L (0-33) 09/09/25 12:36 Alkaline Phosphatase 68 U/L (35-105) 09/09/25 12:36 Troponin T Baseline 10 ng/L (0-10) 09/09/25 12:36 NT-Pro-B Natriuret Pep 461 pg/mL (0-450) H 09/09/25 12:36 Total Protein 6.5 g/dL (6.6-8.7) L 09/09/25 12:36 Albumin 4.6 g/dL (3.5-5.2) 09/09/25 12:36 Globulin 1.9 g/dL (1.3-4.6) 09/09/25 12:36 All radiology interpretation(s) finalized by discharge Discharge Plan Discharge Patient Disposition: Home Clinical Impression: Upper back pain, Dyspnea Condition: Stable Prescriptions: No Action oxycodone-acetaminophen [Percocet] 5-325 mg tablet 1 tab PO Q6H PRN (Reason: pain) 30 Days Qty: 30 0RF levothyroxine 75 mcg tablet 75 mcg PO DAILY Qty: 90 3RF metoprolol tartrate 25 mg tablet 12.5 mg PO BID Qty: 90 3RF losartan 50 mg tablet See Rx Instructions .ROUTE .COMPLEX Qty: 90 3RF Dose Instruction: TAKE 1 TABLET EVERY DAY Rx Instructions: TAKE 1 TABLET EVERY DAY clopidogrel 75 mg tablet See Rx Instructions .ROUTE .COMPLEX Qty: 90 3RF Dose Instruction: TAKE 1 TABLET EVERY DAY Rx Instructions: TAKE 1 TABLET EVERY DAY simvastatin 20 mg tablet See Rx Instructions .ROUTE .COMPLEX Qty: 90 3RF Dose Instruction: TAKE 1 TABLET AT BEDTIME FOR CHOLESTEROL Rx Instructions: TAKE 1 TABLET AT BEDTIME FOR CHOLESTEROL oxybutynin chloride 5 mg tablet See Rx Instructions .ROUTE .COMPLEX Qty: 270 3RF Dose Instruction: TAKE 1 TABLET THREE TIMES DAILY Rx Instructions: TAKE 1 TABLET THREE TIMES DAILY aspirin [Aspir-81] 81 mg Tablet,Delayed Release (Dr/Ec) 81 mg PO DAILY Discharge Orders: Discharge ED (Routine); Ordered 09/09/25 Ordered By: Josiah Sheldon Referrals: Aung Campbell MD [Primary Care Provider, Family Practice] Discharge Diet: Advance as tolerated Discharge Activity: Resume usual activity Patient Instructions: Back Pain (ED) Print Language: Greek Coding Level of Care Code ED Shipmaster for Lala Cruz
[2025-09-09 12:44] LABS: Hematocrit 40.5 % (36-47); Hemoglobin 13.80 g/dL (11.27-16.99); Mean Corpuscular HGB Conc 34.1 g/dL (30-55); Mean Corpuscular Hemoglobin 33.3 pg (27-33); Mean Corpuscular Volume 97.8 fl (85-98); Nucleated Red Blood Cells % 0 %; Platelet Count 210 10^3/cmm (157-399); Red Blood Count 4.14 10^6/uL (3.85-5.65); White Blood Count 3.61 10^3/uL (3.29-11.43)
[2025-09-09 12:58] LABS: INR 0.93 (0.8-1.2); Prothrombin Time 13.10 SECONDS (12.1-14.9)
[2025-09-09 13:01] LABS: Troponin(5th) Baseline 10 ng/L (0-10)
[2025-09-09 13:11] LABS: Alanine Aminotransferase 10 U/L (0-33); Albumin Level 4.6 g/dL (3.5-5.2); Alkaline Phosphatase 68 U/L (35-105); Aspartate Amino Transferase 18 U/L (0-32); Blood Urea Nitrogen 12 mg/dL (8-23); Calcium 9.3 mg/dL (8.5-10.5); Carbon Dioxide 26 mmol/L (22-29); Chloride 99 mmol/L (98-107); Globulin 1.9 g/dL (1.3-4.6); Glucose 94 mg/dL (65-115); NT Pro B Type Natriuretic Pept 461 pg/mL (0-450); Osmolality Calculated 282 mOsm/kg (285-295); Sodium 136 mmol/L (136-145); Total Protein 6.5 g/dL (6.6-8.7)
[2025-09-09 13:13] LABS: Anion Gap 15.5 (5-19); Potassium 4.5 mmol/L (3.5-5.1)
[2025-09-09 13:17] VITALS: BP 134/80; PULSE 52; O2SAT 100
== END 2025-09-09 13:29 | disposition home or self-care (01) ==
PROVIDERS: Emergency Provider Emergency Medicine; PCP Family Medicine
DX: M54.9 Dorsalgia, unspecified (principal); R06.00 Dyspnea, unspecified; Z79.02 Long term (current) use of antithrombotics/antiplatelets; Z79.82 Long term (current) use of aspirin; Z87.891 Personal history of nicotine dependence; I25.10 Atherosclerotic heart disease of native coronary artery without angina pectoris
CPT/HCPCS: 71045; 80053; 83880; 84484; 85025; 85378; 85610; 93005; 99285